=== PATIENT | female | born 1930 | race Caucasian/White ===

== ENCOUNTER 2016-05-15 19:25 | Inpatient (IN) | payer MEDICARE, BC ==
[~2016-05-15] VITALS: Ht 144.8 cm; Wt 52.2 kg
[~2016-05-15 19:25] MED LIST changes: -BIOFREEZE 0.2%-1 GE1 TOP; -CARDURA 1MG1 MG SL; -CELEBREX 1100 MG/CAP PO; -CORGARD40 MG PO; -FLONASE NASAL S16 GM NS; -FLONASEALLERGY NS; -IMODIUM 2MG CAPS2 MG PO; -K-TAB10 PO; -LASIX 40MG TABL40 MG PO; -PREDNISONE 2.52.5 MG; -PREDNISONE 2.52.5 MG PO; -RT ALBUTER2.5 MG/0.5; -RT ALBUTER2.5 MG/0.5 IH; -TESSALON P100 MG/CAP PO; -VANCOCIN HCL1 GM IV; -[UNRECOGNIZED DRUG - OTHER] PO; -[UNRECOGNIZED DRUG - OTHER] PO
[2016-05-15 20:29] LABS: PH 6 (5-8); SQUAMOUS EPITHELIAL None Seen /hpf; URINE APPEARANCE Clear; URINE BACTERIA None Seen /hpf; URINE BILIRUBIN Negative (NEGATIVE); URINE BLOOD Negative (NEGATIVE); URINE COLOR Yellow; URINE GLUCOSE Negative (NEGATIVE); URINE KETONE Negative (NEGATIVE); URINE RBC 0-2 /hpf; URINE WBC 0-2 /hpf
[2016-05-15 20:31] LABS: ADJUSTED CALCIUM 9.2 mg/dL (8.4-10.2); CALCIUM 9.2 mg/dL (8.4-10.2); CREATININE, serum 0.93 mg/dL (0.52-1.25); POTASSIUM 4.2 mmol/L (3.4-5.0); TOTAL PROTEIN 7.1 gm/dL (6.4-8.2)
[2016-05-15 20:49] LABS: C-REACTIVE PROTEIN 20.4 mg/dL (0.0-0.9)
[2016-05-15 21:50] VITALS: BP 130/59; PULSE 73; TEMP 99.5
[2016-05-16 04:29] VITALS: BP 109/45; PULSE 75; TEMP 98
[2016-05-16 07:21] LABS: MEAN CELL VOLUME 98 fl (80.0-100.0); MEAN CORPUSCULAR HGB CONC 33 g/dl (33.0-37.0); MEAN PLATELET VOLUME 10.1 fl (7.4-10.4); PLATELET COUNT 223 K/mm3 (130-400); RED BLOOD COUNT 3.15 M/mm3 (4.10-5.30); REDCELL DISTRIBUTION WIDTH-CV 13.5 % (11.5-14.5); WHITE BLOOD COUNT 18.2 K/mm3 (4.8-10.8)
[2016-05-16 07:24] LABS: ADD PATHOLOGY DIFF REVIEW NO; HEMOGLOBIN 10.2 g/dl (12.5-16.0); MEAN CORPUSCULAR HEMOGLOBIN 32 pg (27.0-31.0)
[2016-05-16 07:32] LABS: CALCIUM 8.6 mg/dL (8.4-10.2); CREATININE, serum 0.69 mg/dL (0.52-1.25)
[2016-05-16 07:43] VITALS: BP 114/53; PULSE 68; TEMP 98.5
[2016-05-16 07:48] LABS: BAND 23 % (0-10); EOSINOPHIL 1 % (0-4); NEUTROPHILS 65 % (42.0-75.2); PLATELET ESTIMATE NORMAL (NORMAL); TOTAL CELLS COUNTED 100
[2016-05-16 12:09] VITALS: BP 110/46; PULSE 65; TEMP 98.5
[2016-05-16 12:39] LABS: INFLUENZA B NEGATIVE
[2016-05-16 16:55] VITALS: BP 111/45; PULSE 73; TEMP 98.6
[2016-05-16 20:08] VITALS: BP 94/29; PULSE 73; TEMP 97.9
[2016-05-16 23:01] VITALS: BP 94/61; PULSE 70; TEMP 97.5
[2016-05-17] VITALS (10 sets, daily range): BP systolic 11–139; BP diastolic 40–90; PULSE 71–100; TEMP 98.3–98.6
[2016-05-17 06:36] LABS: ADD PATHOLOGY DIFF REVIEW NO
[2016-05-17 06:39] LABS: MEAN CELL VOLUME 100 fl (80.0-100.0); MEAN CORPUSCULAR HGB CONC 33 g/dl (33.0-37.0); MEAN PLATELET VOLUME 9.9 fl (7.4-10.4); PLATELET COUNT 260 K/mm3 (130-400); RED BLOOD COUNT 3.12 M/mm3 (4.10-5.30); REDCELL DISTRIBUTION WIDTH-CV 13.5 % (11.5-14.5); WHITE BLOOD COUNT 18.2 K/mm3 (4.8-10.8)
[2016-05-17 06:49] LABS: HEMATOCRIT 31.1 % (37.0-47.0); HEMOGLOBIN 10.1 g/dl (12.5-16.0); MEAN CORPUSCULAR HEMOGLOBIN 32 pg (27.0-31.0)
[2016-05-17 06:53] LABS: CALCIUM 8.8 mg/dL (8.4-10.2); CREATININE, serum 0.69 mg/dL (0.52-1.25); MAGNESIUM 1.8 mg/dL (1.6-2.3); POTASSIUM 4.5 mmol/L (3.4-5.0)
[2016-05-17 07:06] LABS: BAND 3 % (0-10); EOSINOPHIL 7 % (0-4); METAMYELOCYTE 1 % (0-0); NEUTROPHILS 66 % (42.0-75.2); TOTAL CELLS COUNTED 100
[2016-05-17 07:07] LABS: ANISOCYTOSIS 1+; HYPOCHROMIA 1+; POIKILOCYTOSIS 1+; POLYCHROMASIA 1+
[2016-05-18] VITALS (9 sets, daily range): BP systolic 87–129; BP diastolic 39–84; PULSE 62–110; TEMP 97.1–98.7
[2016-05-19 00:19] VITALS: BP 122/69; PULSE 66; TEMP 98
[2016-05-19 03:49] VITALS: BP 123/60; PULSE 71; TEMP 98.4
[2016-05-19 06:29] LABS: MEAN CELL VOLUME 100 fl (80.0-100.0); MEAN CORPUSCULAR HGB CONC 33 g/dl (33.0-37.0); MEAN PLATELET VOLUME 9.8 fl (7.4-10.4); PLATELET COUNT 239 K/mm3 (130-400); RED BLOOD COUNT 2.71 M/mm3 (4.10-5.30); REDCELL DISTRIBUTION WIDTH-CV 13.6 % (11.5-14.5); WHITE BLOOD COUNT 12.6 K/mm3 (4.8-10.8)
[2016-05-19 06:39] LABS: HEMOGLOBIN 8.8 g/dl (12.5-16.0); MEAN CORPUSCULAR HEMOGLOBIN 32 pg (27.0-31.0)
[2016-05-19 06:40] LABS: ADD PATHOLOGY DIFF REVIEW NO
[2016-05-19 07:14] LABS: BAND 17 % (0-10); EOSINOPHIL 9 % (0-4); MYELOCYTE 1 % (0-0); NEUTROPHILS 56 % (42.0-75.2); PLATELET ESTIMATE NORMAL (NORMAL); TOTAL CELLS COUNTED 100
[2016-05-19 08:54] VITALS: BP 151/74; PULSE 70; TEMP 98.4
[2016-05-19 12:26] VITALS: BP 134/54; PULSE 68; TEMP 98.3
[2016-05-19 15:49] VITALS: BP 127/77; PULSE 111; TEMP 98.2
[2016-05-19 20:01] VITALS: BP 132/67; PULSE 72; TEMP 98.4
[2016-05-20] VITALS (7 sets, daily range): BP systolic 102–183; BP diastolic 65–112; PULSE 68–113; TEMP 97.6–98.5
[2016-05-21 04:12] VITALS: BP 142/72; PULSE 86; TEMP 97.2
[2016-05-21 07:43] LABS: BASO % 0.3 % (0.0-2.0); EOS # 0.2 (0.0-0.7); EOS % 1.7 % (0-4.0); GRAN # 10.3 (1.4-6.5); GRAN % 74.9 % (42.2-75.2); LYMPH # 1.1 (1.2-3.4); LYMPH % 8.2 % (20.0-51.0); MEAN CELL VOLUME 100 fl (80.0-100.0); MEAN CORPUSCULAR HGB CONC 32 g/dl (33.0-37.0); MEAN PLATELET VOLUME 9.9 fl (7.4-10.4); MONO # 1.4 (0.1-0.6); MONO % 10.2 % (1.7-9.3); PLATELET COUNT 283 K/mm3 (130-400); RED BLOOD COUNT 2.76 M/mm3 (4.10-5.30); REDCELL DISTRIBUTION WIDTH-CV 13.7 % (11.5-14.5); WHITE BLOOD COUNT 13.8 K/mm3 (4.8-10.8)
[2016-05-21 07:49] LABS: HEMOGLOBIN 8.9 g/dl (12.5-16.0); MEAN CORPUSCULAR HEMOGLOBIN 32 pg (27.0-31.0)
[2016-05-21 07:50] LABS: HEMATOCRIT 27.7 % (37.0-47.0)
[2016-05-21 08:41] LABS: CALCIUM 8.8 mg/dL (8.4-10.2); CREATININE, serum 0.48 mg/dL (0.52-1.25); POTASSIUM 3.9 mmol/L (3.4-5.0)
[2016-05-21 09:14] VITALS: BP 157/65; PULSE 70; TEMP 98.7
[2016-05-21 16:12] VITALS: BP 176/72; PULSE 78; TEMP 98.2
[2016-05-21 20:26] VITALS: BP 133/64; PULSE 70; TEMP 98
[2016-05-22 00:29] VITALS: BP 118/57; PULSE 71; TEMP 98.4
[2016-05-22 03:44] VITALS: BP 141/73; PULSE 74; TEMP 98.1
[2016-05-22 07:38] LABS: CALCIUM 8.8 mg/dL (8.4-10.2); CREATININE, serum 0.57 mg/dL (0.52-1.25); MAGNESIUM 1.6 mg/dL (1.6-2.3); POTASSIUM 3.3 mmol/L (3.4-5.0)
[2016-05-22 07:41] VITALS: BP 145/87; PULSE 77; TEMP 98.3
[2016-05-22 07:50] LABS: BASO % 0.2 % (0.0-2.0); EOS # 0.5 (0.0-0.7); EOS % 4.5 % (0-4.0); GRAN # 8.1 (1.4-6.5); GRAN % 67.3 % (42.2-75.2); LYMPH # 1.4 (1.2-3.4); LYMPH % 11.8 % (20.0-51.0); MEAN CELL VOLUME 99 fl (80.0-100.0); MEAN CORPUSCULAR HGB CONC 32 g/dl (33.0-37.0); MEAN PLATELET VOLUME 9.5 fl (7.4-10.4); MONO # 1.4 (0.1-0.6); MONO % 11.6 % (1.7-9.3); PLATELET COUNT 291 K/mm3 (130-400); RED BLOOD COUNT 2.61 M/mm3 (4.10-5.30); REDCELL DISTRIBUTION WIDTH-CV 13.5 % (11.5-14.5); WHITE BLOOD COUNT 12.1 K/mm3 (4.8-10.8)
[2016-05-22 08:04] LABS: HEMATOCRIT 25.8 % (37.0-47.0); HEMOGLOBIN 8.2 g/dl (12.5-16.0); MEAN CORPUSCULAR HEMOGLOBIN 31 pg (27.0-31.0)
[2016-05-22 12:08] VITALS: BP 131/80; PULSE 110; TEMP 98.2
[2016-05-22 16:49] VITALS: BP 140/65; PULSE 85; TEMP 98.2
[2016-05-22 20:30] VITALS: BP 172/83; PULSE 71; TEMP 98.1
[2016-05-23] VITALS (7 sets, daily range): BP systolic 148–172; BP diastolic 66–79; PULSE 68–76; TEMP 97.4–98.2
[2016-05-23 13:19] LABS: CALCIUM 9.4 mg/dL (8.4-10.2); CREATININE, serum 0.65 mg/dL (0.52-1.25); MAGNESIUM 1.9 mg/dL (1.6-2.3); POTASSIUM 4.4 mmol/L (3.4-5.0)
[2016-05-24 03:40] VITALS: BP 147/79; PULSE 70; TEMP 97.6
[2016-05-24 08:04] VITALS: BP 170/74; PULSE 70; TEMP 97.9
[2016-05-24] MEDS ORDERED: LASIX 20MG TABL20 MG PO (11:43)
[2016-05-24] MEDS ORDERED: KLOR-CON 1010 MEQ PO (11:44)
[2016-05-24] MEDS ORDERED: FLONASE NASAL S16 GM NS (11:46)
[2016-05-24 12:41] VITALS: BP 131/67; PULSE 76; TEMP 97.8
[2016-09-07] MEDS ORDERED: FLONASE NASAL S16 GM NS (13:09)
[2016-09-07] MEDS ORDERED: LASIX 20MG TABL20 MG PO (13:10)
[2016-09-07] MEDS ORDERED: DILAUDID 2MG TAB2 MG PO (13:11)
[2016-09-07] MEDS ORDERED: CORGARD40 MG PO (13:12)
[2016-09-07] MEDS ORDERED: CARDURA 1MG1 MG SL (13:15)
== END 2016-05-24 14:10 | DRG 190 ==
LOC: COL.ER 19:25 → MEDICAL 21:17
PROVIDERS: Emergency Medicine; Internal Medicine; Internal Medicine Pulmonary Disease; Nurse Practitioner Family; Physician Assistant
PROC: 0B9B8ZX Drainage of Left Lower Lobe Bronchus, Via Natural or Artificial Opening Endoscopic, Diagnostic (ICD-10-PCS; 2016-05-17)
PROC: 0BC58ZZ Extirpation of Matter from Right Middle Lobe Bronchus, Via Natural or Artificial Opening Endoscopic (ICD-10-PCS; 2016-05-17)
PROC: 0B948ZX Drainage of Right Upper Lobe Bronchus, Via Natural or Artificial Opening Endoscopic, Diagnostic (ICD-10-PCS; principal; 2016-05-17 11:30)
PROC: 0B968ZX Drainage of Right Lower Lobe Bronchus, Via Natural or Artificial Opening Endoscopic, Diagnostic (ICD-10-PCS; 2016-05-18)
PROC: 0B9B8ZX Drainage of Left Lower Lobe Bronchus, Via Natural or Artificial Opening Endoscopic, Diagnostic (ICD-10-PCS; 2016-05-18)
PROC: 0B968ZX Drainage of Right Lower Lobe Bronchus, Via Natural or Artificial Opening Endoscopic, Diagnostic (ICD-10-PCS; 2016-05-21)
PROC: 0BC68ZZ Extirpation of Matter from Right Lower Lobe Bronchus, Via Natural or Artificial Opening Endoscopic (ICD-10-PCS; 2016-05-21)
PROC: 0B9B8ZX Drainage of Left Lower Lobe Bronchus, Via Natural or Artificial Opening Endoscopic, Diagnostic (ICD-10-PCS; 2016-05-21)
PROC: 0W9B3ZZ Drainage of Left Pleural Cavity, Percutaneous Approach (ICD-10-PCS; 2016-05-21)
DX: J47.0 Bronchiectasis with acute lower respiratory infection (principal); I50.33 Acute on chronic diastolic (congestive) heart failure; E87.1 Hypo-osmolality and hyponatremia; J90 Pleural effusion, not elsewhere classified; J98.11 Atelectasis; E87.3 Alkalosis; Z66 Do not resuscitate; J15.6 Pneumonia due to other Gram-negative bacteria; D86.0 Sarcoidosis of lung; I11.0 Hypertensive heart disease with heart failure; Z95.0 Presence of cardiac pacemaker; I48.91 Unspecified atrial fibrillation; Z79.01 Long term (current) use of anticoagulants; I08.3 Combined rheumatic disorders of mitral, aortic and tricuspid valves; Z87.891 Personal history of nicotine dependence; E87.6 Hypokalemia; Z87.01 Personal history of pneumonia (recurrent); J47.1 Bronchiectasis with (acute) exacerbation
CPT/HCPCS: 99222-AI; 99232-AI; 99239; C9113; G0378; J0696; J1450; J1650; J1940; J1956; J2185; J2405; J2704; J3370; J3475; J7030; J7050; J7120

== ENCOUNTER → 2016-05-15 | Outpatient (CLI) | payer MEDICARE, BC ==
[~2016-05-15] MED LIST: A & D OINT TUBE60 GM TP; ALLEGRA 180MG180 MG PO; ALLEGRA 60MG TA60 MG PO; ALLEGRA60 M1 PO; AMBIEN10 MG PO; B-121000 MCG PO; BETAMETHASONE D0.05% TP; BETAMETHASONE V; BETAPACE 120MG120 MG PO; BETAPACE 80MG80 MG PO; BETAPACE120 MG PO; BETAPACE160 MG PO; BIOFREEZE 0.2%-1 GE1 TOP; BYSTOLIC5 MG PO; CALCIUM & MAGNE1 CAP PO; CARDI-OMEGA1000 MG PO; CARDURA 1MG1 MG PO; CARDURA 1MG1 MG SL; CARDURA1 MG PO; CARDURA1 MG SL; CELEBREX 1100 MG/CAP PO; CELEBREX 200MG200 MG PO; CELEBREX100 MG PO; CELEBREX200 MG PO; CENTRUM SILVER1 CTB PO; CITRUCEL PO; CITRUCEL WITH500 MG PO; CLINORIL200 MG PO; CLOBETASOL PROP0.055 TP; CLOTRIMAZOLE TR10 MG MM; COCONUT OIL 1 ML1 ML PO; CORGARD20 MG PO; CORGARD40 MG PO; CORGARD80 MG PO; CUREL TP; DIFLUCAN200 MG PO; DIGOXIN0.25 MG PO; DILANTIN; DILANTIN KAPSEA30 MG PO; DILAUDID 2MG TAB2 MG PO; DULCOLAX TAB5 MG PO; ESTRACE0.1 MG/GM VG; ESTRACE0.5 MG PO; ESTRADIOL0.5 MG PO; ETHAMBUTOL HYD400 MG PO; EUCERIN1 CRE TP; EYE OP; FISH OIL CONC1000 MG PO; FISH OIL1000 MG PO; FLAX OIL1000 MG PO; FLAX SEED OIL1000 MG PO; FLAXSEED; FLEET GLYCERIN1 SU1 RC; FLONASE NASAL S16 GM NS; FLONASEALLERGY NS; GLYCERIN S1 SUPP.REC RC; GLYCERIN1 SUP RC; GLYCOLAX17 GM/DOSE PO; HEPARIN 50500 U/5 ML IV; HYDROGEL1 GEL; IMODIUM 2MG CAPS2 MG PO; IPRATROPIUM BROM3 M1 IH; K-DUR 10 MEQ T10 MEQ PO; K-TAB10 PO; KLOR-CON 1010 MEQ PO; LASIX 20MG TABL20 MG PO; LASIX 40MG TABL40 MG PO; LEVAQUIN 5500 MG/TA1 PO; LEVOTHROID0.025 MG PO; LEVOTHYROXIN0.025 MG PO; LEVOTHYROXINE0.05 M1 PO; LOPRESSOR 225 MG/TAB PO; LOPRESSOR 550 MG/TAB PO; LOTRIMIN15 GM TP; LOVENOX 3030 MG/0.3 SQ; LOVENOX 4040 MG/0.4 SQ; MAG-OX 400400 MG PO; MAG-OX 400400 MG/TAB PO; MERREM VIA500 MG/VIA IV; METOPROLOL25 MG PO; MILK OF MA400 MG/5 M PO; MILK OF MA400 MG/52 PO; MIRALAX 17GM PK1 PKT PO; MIRALAX PA17 GM/Dose PO; MIRALAX17 GM/DOSE PO; MUCINEX 60600 MG/TA1 PO; MULTAQ400 MG PO; MULTI VITAMINS1 TAB PO; MULTIPLE VITAMI1 TAB PO; MYCELEX10 MG/TAB MM; MYCOSTATIN100000 U/2 PO; NASONEX SPRAY17 GM NS; NASONEX0.05 MG/AC NS; NEURONTIN100 MG/CAP PO; NS INT FLUSH 1010 ML IJ; OMEGA-31000 MG PO; ORIGANUM OIL 1 M1 ML SL; PLAVIX 75MG TAB75 MG PO; PREDNISONE 2.52.5 MG; PREDNISONE 2.52.5 MG PO; PREMARIN PO; PREMARIN VAG42.5 GM VG; PREMARIN0.3 MG PO; PROAIR HFA0.09 MG/AC IH; PROBIOTIC-MAJOR PO; PROBIOTICA100 MILLIO PO; PROCTOSOL HC2.5% RC; PROVENTIL0.09 MG/A1 IH; REFRESH PLUS1 SOL OP; RIFADIN300 MG PO; RISAQUAD PO; ROBITUSSIN DM 105 ML PO; ROBITUSSIN100 MG/5 M PO; RT ALBUTER2.5 MG/0.5; RT ALBUTER2.5 MG/0.5 IH; RYTHMOL 15150 MG/TAB PO; SOTALOL HCL AF80 MG PO; SOTALOL HCL160 MG PO; SYNTHROID 0.0.025 MG PO; SYNTHROID0.05 MG PO; TEMOVATE0.05% TP; TESSALON P100 MG/CAP PO; TIKOSYN0.125 MG PO; TIROSINT25 MC1 PO; TRIAMCINOLONE A15 G3 TP; TYLENOL 325MG325 MG PO; TYLENOL 500MG500 MG PO; TYLENOL EXTRA500 M1 PO; VANCOCIN HCL1 GM IV; VITAMIN B122500 MCG PO; VITAMIN B125000 MCG PO; VITAMIN C BUFF500 MG PO; VITAMIN D31000 IU PO; VITAMIN D32000 I1 PO; VITAMIN D32000 IU PO; VITAMIN D5000 IU PO; VOLTAREN1% TP; XANAX .25M0.25 MG/TA PO; XARELTO10 MG PO; XARELTO20 MG PO; ZITHROMAX 250M250 MG PO; ZITHROMAX500 M2 PO; ZOFRAN 4MG T4 MG/TAB PO; ZOFRAN ODT8 MG PO; [UNRECOGNIZED DRUG - CODE] SQ; [UNRECOGNIZED DRUG - OTHER]; [UNRECOGNIZED DRUG - OTHER] PO; [UNRECOGNIZED DRUG - OTHER] PO
[2016-05-15 15:20] LABS: CREATININE, serum 0.77 mg/dL (0.52-1.25); POTASSIUM 4.2 mmol/L (3.4-5.0)
[2016-05-15 16:42] LABS: BASO # 0.1 (0.0-0.2); BASO % 0.3 % (0.0-2.0); EOS # 0.6 (0.0-0.7); EOS % 2.8 % (0-4.0); GRAN # 15.3 (1.4-6.5); GRAN % 75.5 % (42.2-75.2); LYMPH # 1.9 (1.2-3.4); LYMPH % 9.5 % (20.0-51.0); MEAN CELL VOLUME 96 fl (80.0-100.0); MEAN CORPUSCULAR HGB CONC 34 g/dl (33.0-37.0); MONO # 2.3 (0.1-0.6); MONO % 11.3 % (1.7-9.3); PLATELET COUNT 229 K/mm3 (130-400); RED BLOOD COUNT 3.51 M/mm3 (4.10-5.30); REDCELL DISTRIBUTION WIDTH-CV 13.6 % (11.5-14.5)
[2016-05-15 16:50] LABS: HEMATOCRIT 33.6 % (37.0-47.0); HEMOGLOBIN 11.3 g/dl (12.5-16.0); MEAN CORPUSCULAR HEMOGLOBIN 32 pg (27.0-31.0); WHITE BLOOD COUNT 20.3 K/mm3 (4.8-10.8)
== END ==
LOC: ZLAB.STJ 14:59
PROVIDERS: Internal Medicine
DX: I50.33 Acute on chronic diastolic (congestive) heart failure (principal); E87.5 Hyperkalemia; A31.0 Pulmonary mycobacterial infection

== ENCOUNTER → 2016-05-31 | Outpatient (CLI) | payer MEDICARE, BC ==
[~2016-05-31] MED LIST changes: +BIOFREEZE 0.2%-1 GE1 TOP; +CARDURA 1MG1 MG SL; +CELEBREX 1100 MG/CAP PO; +CORGARD40 MG PO; +FLONASE NASAL S16 GM NS; +FLONASEALLERGY NS; +IMODIUM 2MG CAPS2 MG PO; +K-TAB10 PO; +LASIX 40MG TABL40 MG PO; +PREDNISONE 2.52.5 MG; +PREDNISONE 2.52.5 MG PO; +RT ALBUTER2.5 MG/0.5; +RT ALBUTER2.5 MG/0.5 IH; +TESSALON P100 MG/CAP PO; +VANCOCIN HCL1 GM IV; +[UNRECOGNIZED DRUG - OTHER] PO; +[UNRECOGNIZED DRUG - OTHER] PO
[2016-05-31 17:53] VITALS: BP 148/73; PULSE 79; TEMP 97.3
[2016-05-31 18:27] LABS: CALCIUM 9.4 mg/dL (8.4-10.2); CREATININE, serum 0.71 mg/dL (0.52-1.25); MAGNESIUM 1.8 mg/dL (1.6-2.3); POTASSIUM 4.2 mmol/L (3.4-5.0)
== END ==
LOC: EUO 17:15
PROVIDERS: Family Medicine
DX: E83.42 Hypomagnesemia (principal); Z45.2 Encounter for adjustment and management of vascular access device; K90.0 Celiac disease
CPT/HCPCS: J1644

== ENCOUNTER 2016-06-22 14:45 | Outpatient (CLI) | payer MEDICARE, BC ==
[~2016-06-22] VITALS: Ht 144.8 cm; Wt 49.4 kg
[~2016-06-22 14:45] MED LIST changes: -BIOFREEZE 0.2%-1 GE1 TOP; -CARDURA 1MG1 MG SL; -CELEBREX 1100 MG/CAP PO; -CORGARD40 MG PO; -FLONASEALLERGY NS; -IMODIUM 2MG CAPS2 MG PO; -K-TAB10 PO; -LASIX 40MG TABL40 MG PO; -PREDNISONE 2.52.5 MG; -PREDNISONE 2.52.5 MG PO; -RT ALBUTER2.5 MG/0.5; -RT ALBUTER2.5 MG/0.5 IH; -TESSALON P100 MG/CAP PO; -VANCOCIN HCL1 GM IV; -[UNRECOGNIZED DRUG - OTHER] PO; -[UNRECOGNIZED DRUG - OTHER] PO
[2016-06-22 15:30] VITALS: BP 148/75; PULSE 71; TEMP 98.5
[2016-06-22 16:01] LABS: CALCIUM 9.4 mg/dL (8.4-10.2); CREATININE, serum 0.82 mg/dL (0.52-1.25); POTASSIUM 4.6 mmol/L (3.4-5.0)
[2016-09-07] MEDS ORDERED: FLONASE NASAL S16 GM NS (13:09)
[2016-09-07] MEDS ORDERED: LASIX 20MG TABL20 MG PO (13:10)
[2016-09-07] MEDS ORDERED: DILAUDID 2MG TAB2 MG PO (13:11)
[2016-09-07] MEDS ORDERED: CORGARD40 MG PO (13:12)
[2016-09-07] MEDS ORDERED: CARDURA 1MG1 MG SL (13:15)
== END 2016-06-22 15:41 | disposition home or self-care (01) ==
LOC: EUO 14:45
PROVIDERS: Family Medicine
DX: Z45.2 Encounter for adjustment and management of vascular access device (principal)
CPT/HCPCS: J1644

== ENCOUNTER 2016-07-20 15:28 | Outpatient (CLI) | payer MEDICARE, BC ==
[~2016-07-20] VITALS: Ht 144.8 cm; Wt 49.0 kg
[2016-07-20 16:20] VITALS: BP 134/65; PULSE 73; TEMP 98.1
[2016-09-07] MEDS ORDERED: FLONASE NASAL S16 GM NS (13:09)
[2016-09-07] MEDS ORDERED: LASIX 20MG TABL20 MG PO (13:10)
[2016-09-07] MEDS ORDERED: DILAUDID 2MG TAB2 MG PO (13:11)
[2016-09-07] MEDS ORDERED: CORGARD40 MG PO (13:12)
[2016-09-07] MEDS ORDERED: CARDURA 1MG1 MG SL (13:15)
== END 2016-07-20 16:26 | disposition home or self-care (01) ==
LOC: EUO 15:28
DX: Z45.2 Encounter for adjustment and management of vascular access device (principal)
CPT/HCPCS: J1644

== ENCOUNTER 2016-08-18 13:54 | Outpatient (CLI) | payer MEDICARE, BC ==
[~2016-08-18] VITALS: Ht 144.8 cm; Wt 49.2 kg
[2016-08-18 14:34] VITALS: BP 143/70; PULSE 70
[2016-09-07] MEDS ORDERED: FLONASE NASAL S16 GM NS (13:09)
[2016-09-07] MEDS ORDERED: LASIX 20MG TABL20 MG PO (13:10)
[2016-09-07] MEDS ORDERED: DILAUDID 2MG TAB2 MG PO (13:11)
[2016-09-07] MEDS ORDERED: CORGARD40 MG PO (13:12)
[2016-09-07] MEDS ORDERED: CARDURA 1MG1 MG SL (13:15)
== END 2016-08-18 16:31 | disposition home or self-care (01) ==
LOC: EUO 13:54
DX: Z45.2 Encounter for adjustment and management of vascular access device (principal)
CPT/HCPCS: J1644

== ENCOUNTER 2016-09-09 09:46 | Outpatient (CLI) | payer MEDICARE, BC ==
[~2016-09-09] VITALS: Ht 144.8 cm; Wt 49.1 kg
[~2016-09-09 09:46] MED LIST changes: +CARDURA 1MG1 MG SL; +CORGARD40 MG PO
[2016-09-09] MEDS ORDERED: [UNRECOGNIZED DRUG - OTHER] PO (10:12)
[2016-09-09] MEDS ORDERED: PROAIR HFA0.09 MG/AC IH (10:13)
[2016-09-09] MEDS ORDERED: ROBITUSSIN DM 105 ML PO (10:14)
[2016-09-09] MEDS ORDERED: XARELTO20 MG PO (10:16)
[2016-09-09 10:18] VITALS: BP 162/90; PULSE 69
[2016-09-09 11:13] LABS: CREATININE, serum 0.77 mg/dL (0.52-1.25)
[2016-09-09 12:50] VITALS: BP 140/77; PULSE 71
[2016-09-09 13:08] VITALS: BP 140/77; PULSE 71
[2016-09-09 13:25] VITALS: BP 135/74; PULSE 69
[2016-09-09 13:40] VITALS: BP 132/79; PULSE 69
[2016-09-09 14:10] VITALS: BP 153/88; PULSE 70
== END 2016-09-09 15:08 | disposition home or self-care (01) ==
LOC: COL.RAD 09:46
PROVIDERS: Family Medicine
DX: M50.33 Other cervical disc degeneration, cervicothoracic region (principal)
CPT/HCPCS: J1644; Q9967

== ENCOUNTER → 2016-09-17 | Outpatient (CLI) | payer MEDICARE, BC ==
[~2016-09-17] MED LIST changes: +BIOFREEZE 0.2%-1 GE1 TOP; +CELEBREX 1100 MG/CAP PO; +FLONASEALLERGY NS; +IMODIUM 2MG CAPS2 MG PO; +K-TAB10 PO; +LASIX 40MG TABL40 MG PO; +PREDNISONE 2.52.5 MG; +PREDNISONE 2.52.5 MG PO; +RT ALBUTER2.5 MG/0.5; +RT ALBUTER2.5 MG/0.5 IH; +TESSALON P100 MG/CAP PO; +VANCOCIN HCL1 GM IV; +[UNRECOGNIZED DRUG - OTHER] PO; +[UNRECOGNIZED DRUG - OTHER] PO
== END ==
LOC: MHCPAIN 11:20
DX: G89.29 Other chronic pain (principal); M47.812 Spondylosis without myelopathy or radiculopathy, cervical region; R51 Headache; M54.81 Occipital neuralgia; Z87.891 Personal history of nicotine dependence
CPT/HCPCS: G0463

== ENCOUNTER 2016-10-11 11:11 | Outpatient (CLI) | payer MEDICARE, BC ==
[~2016-10-11 11:11] MED LIST changes: -BIOFREEZE 0.2%-1 GE1 TOP; -CELEBREX 1100 MG/CAP PO; -FLONASEALLERGY NS; -IMODIUM 2MG CAPS2 MG PO; -K-TAB10 PO; -LASIX 40MG TABL40 MG PO; -PREDNISONE 2.52.5 MG; -PREDNISONE 2.52.5 MG PO; -RT ALBUTER2.5 MG/0.5; -RT ALBUTER2.5 MG/0.5 IH; -TESSALON P100 MG/CAP PO; -VANCOCIN HCL1 GM IV; -[UNRECOGNIZED DRUG - OTHER] PO
[2016-10-11 11:50] VITALS: BP 143/68; PULSE 73; TEMP 98.1
== END 2016-10-11 12:25 | disposition home or self-care (01) ==
LOC: EUO 11:11
DX: Z45.2 Encounter for adjustment and management of vascular access device (principal)
CPT/HCPCS: J1644

== ENCOUNTER → 2016-10-22 | Outpatient (CLI) | payer MEDICARE, BC ==
[~2016-10-22] MED LIST changes: +BIOFREEZE 0.2%-1 GE1 TOP; +CELEBREX 1100 MG/CAP PO; +FLONASEALLERGY NS; +IMODIUM 2MG CAPS2 MG PO; +K-TAB10 PO; +LASIX 40MG TABL40 MG PO; +PREDNISONE 2.52.5 MG; +PREDNISONE 2.52.5 MG PO; +RT ALBUTER2.5 MG/0.5; +RT ALBUTER2.5 MG/0.5 IH; +TESSALON P100 MG/CAP PO; +VANCOCIN HCL1 GM IV; +[UNRECOGNIZED DRUG - OTHER] PO
[2016-10-22 10:48] LABS: BASO % 0.4 % (0.0-2.0); EOS # 0.4 (0.0-0.7); EOS % 3.4 % (0-4.0); GRAN # 7.8 (1.4-6.5); GRAN % 69.8 % (42.2-75.2); HEMATOCRIT 36.1 % (37.0-47.0); LYMPH # 1.9 (1.2-3.4); LYMPH % 16.8 % (20.0-51.0); MEAN CELL VOLUME 95 fl (80.0-100.0); MEAN CORPUSCULAR HEMOGLOBIN 32 pg (27.0-31.0); MEAN CORPUSCULAR HGB CONC 33 g/dl (33.0-37.0); MEAN PLATELET VOLUME 9.5 fl (7.4-10.4); MONO % 9.1 % (1.7-9.3); PLATELET COUNT 277 K/mm3 (130-400); RED BLOOD COUNT 3.79 M/mm3 (4.10-5.30); WHITE BLOOD COUNT 11.1 K/mm3 (4.8-10.8)
[2016-10-22 11:06] LABS: ADJUSTED CALCIUM 9.2 mg/dL (8.4-10.2); ALBUMIN 4.1 gm/dL (3.5-5.0); BILIRUBIN,TOTAL 0.7 mg/dL (0.0-1.0); CALCIUM 9.3 mg/dL (8.4-10.2); CREATININE, serum 0.63 mg/dL (0.52-1.25); POTASSIUM 4.1 mmol/L (3.4-5.0); TOTAL PROTEIN 7.2 gm/dL (6.4-8.2)
== END ==
LOC: COL.RAD 09:55
PROVIDERS: Internal Medicine Gastroenterology
DX: I10 Essential (primary) hypertension (principal); R10.84 Generalized abdominal pain
CPT/HCPCS: Q9967

== ENCOUNTER 2016-11-16 17:44 | Inpatient (IN) | payer MEDICARE, BC ==
[~2016-11-16] VITALS: Ht 149.9 cm; Wt 47.4 kg
[~2016-11-16 17:44] MED LIST changes: -BIOFREEZE 0.2%-1 GE1 TOP; -CELEBREX 1100 MG/CAP PO; -FLONASEALLERGY NS; -IMODIUM 2MG CAPS2 MG PO; -K-TAB10 PO; -LASIX 40MG TABL40 MG PO; -PREDNISONE 2.52.5 MG; -PREDNISONE 2.52.5 MG PO; -RT ALBUTER2.5 MG/0.5; -RT ALBUTER2.5 MG/0.5 IH; -TESSALON P100 MG/CAP PO; -VANCOCIN HCL1 GM IV; -[UNRECOGNIZED DRUG - OTHER] PO
[2016-11-16 19:06] LABS: BASO # 0.1 (0.0-0.2); BASO % 0.3 % (0.0-2.0); EOS # 0.3 (0.0-0.7); EOS % 1.5 % (0-4.0); GRAN # 15.5 (1.4-6.5); GRAN % 83.2 % (42.2-75.2); HEMATOCRIT 37.5 % (37.0-47.0); HEMOGLOBIN 12.4 g/dl (12.5-16.0); LYMPH # 1.5 (1.2-3.4); LYMPH % 7.8 % (20.0-51.0); MEAN CELL VOLUME 95 fl (80.0-100.0); MEAN CORPUSCULAR HEMOGLOBIN 31 pg (27.0-31.0); MEAN CORPUSCULAR HGB CONC 33 g/dl (33.0-37.0); MEAN PLATELET VOLUME 9.4 fl (7.4-10.4); MONO # 1.2 (0.1-0.6); MONO % 6.7 % (1.7-9.3); PLATELET COUNT 224 K/mm3 (130-400); RED BLOOD COUNT 3.97 M/mm3 (4.10-5.30); REDCELL DISTRIBUTION WIDTH-CV 12.9 % (11.5-14.5); WHITE BLOOD COUNT 18.6 K/mm3 (4.8-10.8)
[2016-11-16 19:15] LABS: ADJUSTED CALCIUM 9.1 mg/dL (8.4-10.2); BILIRUBIN,TOTAL 0.9 mg/dL (0.0-1.0); C-REACTIVE PROTEIN 2.5 mg/dL (0.0-0.9); CALCIUM 9.1 mg/dL (8.4-10.2); CREATININE, serum 0.72 mg/dL (0.52-1.25); POTASSIUM 4.2 mmol/L (3.4-5.0)
[2016-11-16 19:29] LABS: PH 6 (5-8); SQUAMOUS EPITHELIAL None Seen /hpf; URINE APPEARANCE Clear; URINE BACTERIA None Seen /hpf; URINE BILIRUBIN Negative (NEGATIVE); URINE BLOOD Negative (NEGATIVE); URINE COLOR Yellow; URINE GLUCOSE Negative (NEGATIVE); URINE KETONE Negative (NEGATIVE); URINE UROBILINOGEN Negative (NEGATIVE); URINE WBC 0-2 /hpf
[2016-11-16] MEDS ORDERED: SYNTHROID 0.0.025 MG PO (19:48)
[2016-11-16] MEDS ORDERED: ZOFRAN 4MG T4 MG/TAB PO (19:49)
[2016-11-16] MEDS ORDERED: IMODIUM 2MG CAPS2 MG PO (19:49)
[2016-11-16] MEDS ORDERED: CELEBREX 1100 MG/CAP PO (19:54)
[2016-11-16] MEDS ORDERED: ALLEGRA 60MG TA60 MG PO (19:55)
[2016-11-16] MEDS ORDERED: FLONASEALLERGY NS (19:59)
[2016-11-16] MEDS ORDERED: [UNRECOGNIZED DRUG - OTHER] PO (20:35)
[2016-11-16] MEDS ORDERED: TYLENOL 500MG500 MG PO (20:36)
[2016-11-16] MEDS ORDERED: DULCOLAX TAB5 MG PO (20:36)
[2016-11-16] MEDS ORDERED: RT ALBUTER2.5 MG/0.5 (20:42)
[2016-11-16] MEDS ORDERED: BIOFREEZE 0.2%-1 GE1 TOP (20:43)
[2016-11-16 21:32] VITALS: BP 136/63; PULSE 70; TEMP 98.4
[2016-11-16 22:49] LABS: MAGNESIUM 1.5 mg/dL (1.6-2.3)
[2016-11-16] MEDS ORDERED: DIFLUCAN200 MG PO (23:10)
[2016-11-16] MEDS ORDERED: K-TAB10 PO (23:14)
[2016-11-16] MEDS ORDERED: LASIX 20MG TABL20 MG PO (23:16)
[2016-11-16] MEDS ORDERED: TESSALON P100 MG/CAP PO (23:17)
[2016-11-17 04:21] VITALS: BP 123/54; PULSE 73; TEMP 97.9
[2016-11-17 05:27] LABS: BASO # 0.1 (0.0-0.2); BASO % 0.3 % (0.0-2.0); EOS % 0.1 % (0-4.0); GRAN # 15.1 (1.4-6.5); GRAN % 86.9 % (42.2-75.2); LYMPH # 1.1 (1.2-3.4); LYMPH % 6.5 % (20.0-51.0); MEAN CELL VOLUME 95 fl (80.0-100.0); MEAN CORPUSCULAR HGB CONC 34 g/dl (33.0-37.0); MEAN PLATELET VOLUME 9.9 fl (7.4-10.4); MONO % 5.5 % (1.7-9.3); PLATELET COUNT 237 K/mm3 (130-400); RED BLOOD COUNT 3.63 M/mm3 (4.10-5.30); REDCELL DISTRIBUTION WIDTH-CV 13.1 % (11.5-14.5); WHITE BLOOD COUNT 17.4 K/mm3 (4.8-10.8)
[2016-11-17 05:32] LABS: HEMATOCRIT 34.6 % (37.0-47.0); HEMOGLOBIN 11.6 g/dl (12.5-16.0); MEAN CORPUSCULAR HEMOGLOBIN 32 pg (27.0-31.0)
[2016-11-17 05:39] LABS: ADJUSTED CALCIUM 8.8 mg/dL (8.4-10.2); ALBUMIN 3.5 gm/dL (3.5-5.0); BILIRUBIN,TOTAL 0.8 mg/dL (0.0-1.0); CALCIUM 8.4 mg/dL (8.4-10.2); CREATININE, serum 0.65 mg/dL (0.52-1.25); MAGNESIUM 2.1 mg/dL (1.6-2.3); POTASSIUM 4.4 mmol/L (3.4-5.0); TOTAL PROTEIN 6.2 gm/dL (6.4-8.2)
[2016-11-17 07:54] VITALS: BP 112/55; PULSE 70; TEMP 98.2
[2016-11-17 10:49] VITALS: BP 119/61; PULSE 72; TEMP 97.8
[2016-11-17 16:22] LABS: BASO # 0.1 (0.0-0.2); BASO % 0.3 % (0.0-2.0); EOS # 0.1 (0.0-0.7); EOS % 0.7 % (0-4.0); GRAN # 13.2 (1.4-6.5); GRAN % 81.4 % (42.2-75.2); LYMPH # 1.3 (1.2-3.4); LYMPH % 7.8 % (20.0-51.0); MEAN CELL VOLUME 95 fl (80.0-100.0); MEAN CORPUSCULAR HGB CONC 33 g/dl (33.0-37.0); MEAN PLATELET VOLUME 9.7 fl (7.4-10.4); MONO # 1.5 (0.1-0.6); MONO % 9.1 % (1.7-9.3); PLATELET COUNT 194 K/mm3 (130-400); RED BLOOD COUNT 3.34 M/mm3 (4.10-5.30); REDCELL DISTRIBUTION WIDTH-CV 13.2 % (11.5-14.5); WHITE BLOOD COUNT 16.3 K/mm3 (4.8-10.8)
[2016-11-17 16:30] LABS: HEMATOCRIT 31.8 % (37.0-47.0); HEMOGLOBIN 10.5 g/dl (12.5-16.0); MEAN CORPUSCULAR HEMOGLOBIN 31 pg (27.0-31.0)
[2016-11-17 17:45] VITALS: BP 108/49; PULSE 75; TEMP 98.6
[2016-11-17 20:07] VITALS: BP 116/48; PULSE 74; TEMP 98.7
[2016-11-17 23:33] VITALS: BP 99/44; PULSE 70; TEMP 97.6
[2016-11-18 03:11] VITALS: BP 102/46; PULSE 71; TEMP 98.6
[2016-11-18 06:39] LABS: BASO # 0.1 (0.0-0.2); BASO % 0.4 % (0.0-2.0); EOS # 0.3 (0.0-0.7); EOS % 1.7 % (0-4.0); GRAN % 79.5 % (42.2-75.2); LYMPH # 1.4 (1.2-3.4); LYMPH % 9.1 % (20.0-51.0); MEAN CELL VOLUME 97 fl (80.0-100.0); MEAN CORPUSCULAR HGB CONC 32 g/dl (33.0-37.0); MEAN PLATELET VOLUME 10.2 fl (7.4-10.4); MONO # 1.3 (0.1-0.6); MONO % 8.5 % (1.7-9.3); PLATELET COUNT 200 K/mm3 (130-400); RED BLOOD COUNT 3.31 M/mm3 (4.10-5.30); REDCELL DISTRIBUTION WIDTH-CV 13.2 % (11.5-14.5); WHITE BLOOD COUNT 15.1 K/mm3 (4.8-10.8)
[2016-11-18 06:47] LABS: HEMATOCRIT 32.2 % (37.0-47.0); HEMOGLOBIN 10.4 g/dl (12.5-16.0); MEAN CORPUSCULAR HEMOGLOBIN 31 pg (27.0-31.0)
[2016-11-18 06:51] LABS: CALCIUM 8.3 mg/dL (8.4-10.2); CREATININE, serum 0.61 mg/dL (0.52-1.25); MAGNESIUM 1.7 mg/dL (1.6-2.3); POTASSIUM 3.6 mmol/L (3.4-5.0)
[2016-11-18 11:09] VITALS: BP 113/50; PULSE 69; TEMP 97.7
[2016-11-18 16:15] VITALS: BP 131/59; PULSE 80
[2016-11-18 19:56] VITALS: BP 112/55; PULSE 111; TEMP 98.9
[2016-11-18 23:12] VITALS: BP 109/56; PULSE 85; TEMP 98.6
[2016-11-19 03:25] VITALS: BP 127/56; PULSE 74; TEMP 97.7
[2016-11-19 08:19] VITALS: BP 150/70; PULSE 73; TEMP 98.4
[2016-11-19] MEDS ORDERED: PREDNISONE 2.52.5 MG PO (09:31)
== END 2016-11-19 11:28 | DRG 392 ==
LOC: COL.ER 17:44 → MEDICAL 20:29
PROVIDERS: Family Medicine; Internal Medicine Gastroenterology; Nurse Practitioner Family; Physician Assistant
PROC: 0DBF8ZX Excision of Right Large Intestine, Via Natural or Artificial Opening Endoscopic, Diagnostic (ICD-10-PCS; 2016-11-18)
PROC: 0DBG8ZX Excision of Left Large Intestine, Via Natural or Artificial Opening Endoscopic, Diagnostic (ICD-10-PCS; principal; 2016-11-18 08:00)
DX: K52.89 Other specified noninfective gastroenteritis and colitis (principal); E87.1 Hypo-osmolality and hyponatremia; E44.0 Moderate protein-calorie malnutrition; I10 Essential (primary) hypertension; I48.91 Unspecified atrial fibrillation; Z95.0 Presence of cardiac pacemaker; K90.0 Celiac disease; K64.0 First degree hemorrhoids; G51.0 Bell's palsy; Z87.891 Personal history of nicotine dependence; E83.42 Hypomagnesemia; E87.8 Other disorders of electrolyte and fluid balance, not elsewhere classified; D64.9 Anemia, unspecified; D86.0 Sarcoidosis of lung; K58.0 Irritable bowel syndrome with diarrhea
CPT/HCPCS: 99222-AI; 99232-AI; 99239; J1200; J1956; J2270; J2405; J2704; J3010; J3475; J7030; J7512; Q9967

== ENCOUNTER → 2016-11-16 | Outpatient (REF) | LOC: ZLAB.STJ 11:34 | DX: Z01.89 Encounter for other specified special examinations (principal) ==

== ENCOUNTER 2016-12-03 09:56 | Inpatient (IN) | payer MEDICARE, BC ==
[~2016-12-03] VITALS: Ht 144.8 cm; Wt 46.2 kg
[~2016-12-03 09:56] MED LIST changes: +BIOFREEZE 0.2%-1 GE1 TOP; +CELEBREX 1100 MG/CAP PO; +FLONASEALLERGY NS; +IMODIUM 2MG CAPS2 MG PO; +K-TAB10 PO; +PREDNISONE 2.52.5 MG PO; +RT ALBUTER2.5 MG/0.5; +TESSALON P100 MG/CAP PO; +[UNRECOGNIZED DRUG - OTHER] PO
[2016-12-03 10:54] LABS: HEMATOCRIT 38.2 % (37.0-47.0); HEMOGLOBIN 12.3 g/dl (12.5-16.0); MEAN CELL VOLUME 97 fl (80.0-100.0); MEAN CORPUSCULAR HEMOGLOBIN 31 pg (27.0-31.0); MEAN CORPUSCULAR HGB CONC 32 g/dl (33.0-37.0); MEAN PLATELET VOLUME 9.6 fl (7.4-10.4); PLATELET COUNT 374 K/mm3 (130-400); RED BLOOD COUNT 3.95 M/mm3 (4.10-5.30); REDCELL DISTRIBUTION WIDTH-CV 13.6 % (11.5-14.5); WHITE BLOOD COUNT 18.3 K/mm3 (4.8-10.8)
[2016-12-03 10:58] LABS: ADD PATHOLOGY DIFF REVIEW NO
[2016-12-03 11:07] LABS: ADJUSTED CALCIUM 8.8 mg/dL (8.4-10.2); ALANINE AMINOTRANSFERASE 32 U/L (9-52); ALBUMIN 4.2 gm/dL (3.5-5.0); ALKALINE PHOSPHATASE 105 U/L (50-136); ANION GAP 9 mmol/L (7-16); BILIRUBIN,TOTAL 0.6 mg/dL (0.0-1.0); BLOOD UREA NITROGEN 8 mg/dL (7-17); CARBON DIOXIDE 29 mmol/L (22-30); CHLORIDE 96 mmol/L (98-107); CREATININE, serum 0.69 mg/dL (0.52-1.25); GLUCOSE 118 mg/dL (74-106); POTASSIUM 4.2 mmol/L (3.4-5.0); SODIUM 134 mmol/L (137-145); TOTAL PROTEIN 7.2 gm/dL (6.4-8.2)
[2016-12-03 11:18] LABS: B-TYPE NATRIURETIC PEPTIDE 1340 pg/mL (0-450)
[2016-12-03 11:19] LABS: TROPONIN-I < 0.012 ng/mL (0.000-0.034)
[2016-12-03 11:26] LABS: BAND 14 % (0-10); METAMYELOCYTE 1 % (0-0); MYELOCYTE 3 % (0-0); NEUTROPHILS 78 % (42.0-75.2); PLATELET ESTIMATE INCREASED (NORMAL); TOTAL CELLS COUNTED 100
[2016-12-03] MEDS ORDERED: CORGARD40 MG PO (12:09)
[2016-12-03] MEDS ORDERED: PREDNISONE 2.52.5 MG (12:12)
[2016-12-03 13:18] VITALS: BP 151/68; PULSE 92; TEMP 98.4
[2016-12-03 15:59] VITALS: BP 127/64; PULSE 77; TEMP 99.1
[2016-12-03 19:32] VITALS: BP 120/56; PULSE 79; TEMP 99.5
[2016-12-04] VITALS (7 sets, daily range): BP systolic 87–119; BP diastolic 44–71; PULSE 70–106; TEMP 97.6–99.6
[2016-12-04 17:39] LABS: CALCIUM 9.2 mg/dL (8.4-10.2); CREATININE, serum 0.87 mg/dL (0.52-1.25); POTASSIUM 3.6 mmol/L (3.4-5.0)
[2016-12-04 17:53] LABS: HEMOGLOBIN 12.1 g/dl (12.5-16.0); MEAN CELL VOLUME 95 fl (80.0-100.0); MEAN CORPUSCULAR HEMOGLOBIN 32 pg (27.0-31.0); MEAN CORPUSCULAR HGB CONC 34 g/dl (33.0-37.0); MEAN PLATELET VOLUME 9.9 fl (7.4-10.4); PLATELET COUNT 321 K/mm3 (130-400); RED BLOOD COUNT 3.79 M/mm3 (4.10-5.30); REDCELL DISTRIBUTION WIDTH-CV 13.3 % (11.5-14.5); WHITE BLOOD COUNT 17.9 K/mm3 (4.8-10.8)
[2016-12-04 18:13] LABS: HEMATOCRIT 35.9 % (37.0-47.0)
[2016-12-05 03:16] VITALS: BP 102/50; PULSE 71; TEMP 97.5
[2016-12-05 06:31] LABS: MEAN CELL VOLUME 95 fl (80.0-100.0); MEAN CORPUSCULAR HGB CONC 33 g/dl (33.0-37.0); MEAN PLATELET VOLUME 9.8 fl (7.4-10.4); PLATELET COUNT 292 K/mm3 (130-400); RED BLOOD COUNT 3.35 M/mm3 (4.10-5.30); REDCELL DISTRIBUTION WIDTH-CV 13.4 % (11.5-14.5); WHITE BLOOD COUNT 15.9 K/mm3 (4.8-10.8)
[2016-12-05 06:40] LABS: HEMATOCRIT 31.8 % (37.0-47.0); HEMOGLOBIN 10.5 g/dl (12.5-16.0); MEAN CORPUSCULAR HEMOGLOBIN 31 pg (27.0-31.0)
[2016-12-05 06:43] LABS: CALCIUM 8.6 mg/dL (8.4-10.2); CREATININE, serum 0.82 mg/dL (0.52-1.25); POTASSIUM 3.8 mmol/L (3.4-5.0)
[2016-12-05 08:18] VITALS: BP 103/53; PULSE 86; TEMP 97.9
[2016-12-05 11:11] VITALS: BP 116/70; PULSE 81; TEMP 98.2
[2016-12-05 16:14] VITALS: BP 128/66; PULSE 88; TEMP 98.5
[2016-12-05 19:42] VITALS: BP 121/61; PULSE 70; TEMP 98.7
[2016-12-05 23:09] VITALS: BP 106/53; PULSE 70; TEMP 98
[2016-12-06 02:49] VITALS: BP 106/54; PULSE 69; TEMP 97.8
[2016-12-06 07:38] LABS: CALCIUM 8.8 mg/dL (8.4-10.2); CREATININE, serum 0.77 mg/dL (0.52-1.25); POTASSIUM 3.7 mmol/L (3.4-5.0)
[2016-12-06 08:48] VITALS: BP 108/54; PULSE 72; TEMP 98.7
[2016-12-06 11:00] VITALS: BP 99/61; PULSE 75; TEMP 98.2
[2016-12-06 17:40] VITALS: BP 104/54; PULSE 70; TEMP 98.4
[2016-12-06 19:50] VITALS: BP 104/55; PULSE 72; TEMP 97.8
[2016-12-06 23:33] VITALS: BP 108/81; PULSE 70; TEMP 97.6
[2016-12-07 03:34] VITALS: BP 117/61; PULSE 82; TEMP 97.8
[2016-12-07 07:01] LABS: HEMATOCRIT 32.5 % (37.0-47.0); MEAN CELL VOLUME 94 fl (80.0-100.0); MEAN CORPUSCULAR HEMOGLOBIN 32 pg (27.0-31.0); MEAN CORPUSCULAR HGB CONC 34 g/dl (33.0-37.0); MEAN PLATELET VOLUME 9.8 fl (7.4-10.4); PLATELET COUNT 299 K/mm3 (130-400); RED BLOOD COUNT 3.47 M/mm3 (4.10-5.30); REDCELL DISTRIBUTION WIDTH-CV 13.1 % (11.5-14.5); WHITE BLOOD COUNT 14.7 K/mm3 (4.8-10.8)
[2016-12-07 07:10] LABS: CREATININE, serum 0.82 mg/dL (0.52-1.25); POTASSIUM 3.6 mmol/L (3.4-5.0)
[2016-12-07 07:42] LABS: BAND 12 % (0-10); EOSINOPHIL 6 % (0-4); METAMYELOCYTE 1 % (0-0); NEUTROPHILS 56 % (42.0-75.2); PLATELET ESTIMATE NORMAL (NORMAL); TOTAL CELLS COUNTED 100
[2016-12-07 07:50] LABS: ADD PATHOLOGY DIFF REVIEW YES
[2016-12-07 08:24] VITALS: BP 106/59; PULSE 81; TEMP 98.8
[2016-12-07 08:32] LABS: PATHOLOGY DIFF REVIEW OK
[2016-12-07 11:38] VITALS: BP 97/49; PULSE 71; TEMP 97.9
[2016-12-07] MEDS ORDERED: VANCOCIN HCL1 GM IV (14:04)
[2016-12-07] MEDS ORDERED: LASIX 40MG TABL40 MG PO (14:05)
[2016-12-07] MEDS ORDERED: RT ALBUTER2.5 MG/0.5 IH (14:05)
[2016-12-07] MEDS ORDERED: K-DUR 10 MEQ T10 MEQ PO (14:06)
[2016-12-07] MEDS ORDERED: XARELTO20 MG PO (14:08)
[2016-12-07 14:36] VITALS: BP 97/49; PULSE 71; TEMP 97.9
== END 2016-12-07 17:00 | DRG 291 ==
LOC: COL.ER 09:56 → MEDICAL 11:53
PROVIDERS: Emergency Medicine; Internal Medicine Cardiovascular Disease; Physician Assistant
DX: I11.0 Hypertensive heart disease with heart failure (principal); J18.9 Pneumonia, unspecified organism; E87.1 Hypo-osmolality and hyponatremia; E44.0 Moderate protein-calorie malnutrition; I50.33 Acute on chronic diastolic (congestive) heart failure; E03.9 Hypothyroidism, unspecified; K90.0 Celiac disease; D86.0 Sarcoidosis of lung; G62.89 Other specified polyneuropathies; D63.8 Anemia in other chronic diseases classified elsewhere; Z95.810 Presence of automatic (implantable) cardiac defibrillator; Z87.891 Personal history of nicotine dependence
CPT/HCPCS: 99223-AI; 99233-AI; 99239; J0692; J1650; J1940; J3370; J7030; J7050; J7512

== ENCOUNTER → 2016-12-10 | Outpatient (REF) ==
[~2016-12-10] MED LIST changes: +LASIX 40MG TABL40 MG PO; +PREDNISONE 2.52.5 MG; +RT ALBUTER2.5 MG/0.5 IH; +VANCOCIN HCL1 GM IV
[2016-12-10 14:44] LABS: HEMOGLOBIN 17.6 g/dl (12.5-16.0); MEAN CELL VOLUME 93 fl (80.0-100.0); MEAN CORPUSCULAR HEMOGLOBIN 31 pg (27.0-31.0); MEAN CORPUSCULAR HGB CONC 34 g/dl (33.0-37.0); MEAN PLATELET VOLUME 9.5 fl (7.4-10.4); PLATELET COUNT 154 K/mm3 (130-400); RED BLOOD COUNT 5.64 M/mm3 (4.10-5.30); REDCELL DISTRIBUTION WIDTH-CV 13.2 % (11.5-14.5); WHITE BLOOD COUNT 6.2 K/mm3 (4.8-10.8)
[2016-12-10 14:53] LABS: HEMATOCRIT 52.5 % (37.0-47.0)
[2016-12-10 14:57] LABS: INR 1.2 (0.8-3.0)
[2016-12-10 15:06] LABS: ADJUSTED CALCIUM 9.2 mg/dL (8.4-10.2); ALBUMIN 3.9 gm/dL (3.5-5.0); BILIRUBIN,TOTAL 0.4 mg/dL (0.0-1.0); CALCIUM 9.1 mg/dL (8.4-10.2); CREATININE, serum 0.83 mg/dL (0.52-1.25); POTASSIUM 3.9 mmol/L (3.4-5.0); TOTAL PROTEIN 7.4 gm/dL (6.4-8.2)
[2016-12-10 15:27] LABS: VANCOMYCIN TROUGH 20.37 ug/mL (7.00-20.00)
== END ==
LOC: ZLAB.STJ 14:39
PROVIDERS: Family Medicine
DX: Z02.89 Encounter for other administrative examinations (principal)

== ENCOUNTER → 2016-12-14 | Outpatient (REF) | LOC: ZLAB.STJ 14:25 | DX: Z02.89 Encounter for other administrative examinations (principal) ==

== ENCOUNTER → 2016-12-23 | Outpatient (REF) | LOC: ZLAB.STJ 09:32 | DX: Z02.89 Encounter for other administrative examinations (principal) ==

== ENCOUNTER 2016-12-27 10:59 | Outpatient (CLI) | payer MEDICARE, BC ==
[~2016-12-27] VITALS: Ht 144.8 cm; Wt 95.0 kg
[2016-12-27 12:13] LABS: BASO % 0.5 % (0.0-2.0); EOS # 0.6 (0.0-0.7); EOS % 6.7 % (0-4.0); GRAN # 5.4 (1.4-6.5); LYMPH # 1.4 (1.2-3.4); LYMPH % 16.5 % (20.0-51.0); MEAN CELL VOLUME 95 fl (80.0-100.0); MEAN CORPUSCULAR HGB CONC 33 g/dl (33.0-37.0); MEAN PLATELET VOLUME 9.6 fl (7.4-10.4); MONO % 11.9 % (1.7-9.3); PLATELET COUNT 267 K/mm3 (130-400); REDCELL DISTRIBUTION WIDTH-CV 13.5 % (11.5-14.5); WHITE BLOOD COUNT 8.5 K/mm3 (4.8-10.8)
[2016-12-27 12:22] LABS: HEMATOCRIT 36.1 % (37.0-47.0); HEMOGLOBIN 11.9 g/dl (12.5-16.0); MEAN CORPUSCULAR HEMOGLOBIN 31 pg (27.0-31.0)
[2016-12-27 12:24] VITALS: BP 109/56; PULSE 70; TEMP 98.5
[2016-12-27 12:42] LABS: CALCIUM 9.3 mg/dL (8.4-10.2); CREATININE, serum 0.92 mg/dL (0.52-1.25); MAGNESIUM 1.8 mg/dL (1.6-2.3); POTASSIUM 4.1 mmol/L (3.4-5.0)
[2016-12-27 13:13] LABS: THYROID STIMULATING HORMONE 1.47 uIU/mL (0.465-4.680)
[2016-12-28 05:50] LABS: PROCALCITONIN <0.05 ng/mL (0.00-0.09)
== END 2016-12-27 16:00 | disposition home or self-care (01) ==
LOC: EUO 10:59 → COL.RAD 10:59 → EUO 11:30
PROVIDERS: Family Medicine
DX: J15.211 Pneumonia due to Methicillin susceptible Staphylococcus aureus (principal); J84.10 Pulmonary fibrosis, unspecified; E53.8 Deficiency of other specified B group vitamins; E83.42 Hypomagnesemia; E03.9 Hypothyroidism, unspecified; Z45.2 Encounter for adjustment and management of vascular access device; Z95.810 Presence of automatic (implantable) cardiac defibrillator; Z95.0 Presence of cardiac pacemaker
CPT/HCPCS: J1644

== ENCOUNTER 2017-02-23 13:31 | Outpatient (CLI) | payer MEDICARE, BC ==
[~2017-02-23] VITALS: Ht 144.8 cm; Wt 45.4 kg
[2017-02-23 14:23] VITALS: BP 131/65; PULSE 69; TEMP 98.1
[2017-02-23] MEDS ORDERED: VENTOLIN0.09 MG IH (14:27)
[2017-02-23] MEDS ORDERED: LASIX 20MG TABL20 MG PO (14:31)
[2017-02-23] MEDS ORDERED: K-DUR 10 MEQ T10 MEQ PO (14:39)
[2017-02-23] MEDS ORDERED: XARELTO20 MG PO (14:40)
== END 2017-02-23 17:06 | disposition home or self-care (01) ==
LOC: EUO 13:31
DX: Z45.2 Encounter for adjustment and management of vascular access device (principal)
CPT/HCPCS: J1644

== ENCOUNTER 2017-04-07 13:41 | Outpatient (CLI) | payer MEDICARE, BC ==
[~2017-04-07] VITALS: Ht 144.8 cm; Wt 42.4 kg
[~2017-04-07 13:41] MED LIST changes: +VENTOLIN0.09 MG IH
[2017-04-07 14:00] VITALS: BP 140/72; PULSE 67; TEMP 98.2
[2017-04-07 14:14] LABS: MEAN CELL VOLUME 95 fl (80.0-100.0); MEAN CORPUSCULAR HGB CONC 33 g/dl (33.0-37.0); MEAN PLATELET VOLUME 9.4 fl (7.4-10.4); PLATELET COUNT 311 K/mm3 (130-400); RED BLOOD COUNT 3.38 M/mm3 (4.10-5.30); WHITE BLOOD COUNT 12.7 K/mm3 (4.8-10.8)
[2017-04-07 14:16] LABS: HEMATOCRIT 32.2 % (37.0-47.0); HEMOGLOBIN 10.6 g/dl (12.5-16.0); MEAN CORPUSCULAR HEMOGLOBIN 31 pg (27.0-31.0)
[2017-04-07 14:35] LABS: ADJUSTED CALCIUM 8.9 mg/dL (8.4-10.2); BILIRUBIN,TOTAL 0.3 mg/dL (0.0-1.0); CALCIUM 8.9 mg/dL (8.4-10.2); CREATININE, serum 0.86 mg/dL (0.52-1.25); MAGNESIUM 1.7 mg/dL (1.6-2.3); POTASSIUM 4.3 mmol/L (3.4-5.0); TOTAL PROTEIN 7.7 gm/dL (6.4-8.2)
== END 2017-04-07 15:02 | disposition home or self-care (01) ==
LOC: EUO 13:41
PROVIDERS: Family Medicine
DX: Z45.2 Encounter for adjustment and management of vascular access device (principal)
CPT/HCPCS: J1644

== ENCOUNTER 2017-04-28 07:40 | Outpatient (CLI) | payer MEDICARE, BC ==
[~2017-04-28] VITALS: Ht 144.8 cm; Wt 19.6 kg
[2017-04-28] VITALS (8 sets, daily range): BP systolic 127–177; BP diastolic 70–82; PULSE 69–77; TEMP 98.3
[2017-04-28 08:27] LABS: MEAN CELL VOLUME 94 fl (80.0-100.0); MEAN CORPUSCULAR HGB CONC 32 g/dl (33.0-37.0); MEAN PLATELET VOLUME 9.1 fl (7.4-10.4); PLATELET COUNT 354 K/mm3 (130-400); RED BLOOD COUNT 3.47 M/mm3 (4.10-5.30); REDCELL DISTRIBUTION WIDTH-CV 13.2 % (11.5-14.5)
[2017-04-28] MEDS ORDERED: FLORAVANCE CAP1 EACH PO (08:27)
[2017-04-28] MEDS ORDERED: BENADRYL ALLERG25 M2 PO (08:29)
[2017-04-28] MEDS ORDERED: PRILOSEC 20MG20 MG PO (08:30)
[2017-04-28 08:32] LABS: ALBUMIN 4.1 gm/dL (3.5-5.0); BILIRUBIN,TOTAL 0.5 mg/dL (0.0-1.0); CALCIUM 9.4 mg/dL (8.4-10.2); CREATININE, serum 0.75 mg/dL (0.52-1.25); HEMATOCRIT 32.5 % (37.0-47.0); HEMOGLOBIN 10.4 g/dl (12.5-16.0); MAGNESIUM 1.7 mg/dL (1.6-2.3); MEAN CORPUSCULAR HEMOGLOBIN 30 pg (27.0-31.0); TOTAL PROTEIN 7.6 gm/dL (6.4-8.2)
[2017-04-28 08:34] LABS: CALCIUM 9.4 mg/dL (8.4-10.2); CREATININE, serum 0.73 mg/dL (0.52-1.25)
[2017-04-28 08:58] LABS: INR 1.7 (0.8-3.0); PROTHROMBIN TIME 19.5 SECONDS (9.7-12.8)
[2017-04-28 09:55] LABS: MEAN CELL VOLUME 94 fl (80.0-100.0); MEAN CORPUSCULAR HGB CONC 32 g/dl (33.0-37.0); MEAN PLATELET VOLUME 9.6 fl (7.4-10.4); PLATELET COUNT 379 K/mm3 (130-400); RED BLOOD COUNT 3.43 M/mm3 (4.10-5.30); REDCELL DISTRIBUTION WIDTH-CV 13.2 % (11.5-14.5)
[2017-04-28 09:59] LABS: HEMATOCRIT 32.3 % (37.0-47.0); HEMOGLOBIN 10.3 g/dl (12.5-16.0); MEAN CORPUSCULAR HEMOGLOBIN 30 pg (27.0-31.0)
[2017-04-28 10:27] LABS: BAND 15 % (0-10); EOSINOPHIL 2 % (0-4); LYMPHOCYTE 17 % (20.0-51.0); METAMYELOCYTE 1 % (0-0); NEUTROPHILS 63 % (42.0-75.2); PLATELET ESTIMATE NORMAL (NORMAL)
== END 2017-04-28 11:30 | disposition home or self-care (01) ==
LOC: COL.RAD 07:40
PROVIDERS: Family Medicine; Internal Medicine Cardiovascular Disease
DX: I48.0 Paroxysmal atrial fibrillation (principal); I08.3 Combined rheumatic disorders of mitral, aortic and tricuspid valves; I25.5 Ischemic cardiomyopathy; I10 Essential (primary) hypertension; K90.0 Celiac disease; G51.0 Bell's palsy; I49.5 Sick sinus syndrome; A49.02 Methicillin resistant Staphylococcus aureus infection, unspecified site; F41.9 Anxiety disorder, unspecified; J30.9 Allergic rhinitis, unspecified; G43.909 Migraine, unspecified, not intractable, without status migrainosus; Z79.01 Long term (current) use of anticoagulants; Z79.02 Long term (current) use of antithrombotics/antiplatelets; Z87.01 Personal history of pneumonia (recurrent); G89.4 Chronic pain syndrome; M47.896 Other spondylosis, lumbar region; Z90.49 Acquired absence of other specified parts of digestive tract; Z88.8 Allergy status to other drugs, medicaments and biological substances; Z88.0 Allergy status to penicillin; Z88.6 Allergy status to analgesic agent; Z88.5 Allergy status to narcotic agent; Z68.20 Body mass index [BMI] 20.0-20.9, adult; K21.9 Gastro-esophageal reflux disease without esophagitis; M19.90 Unspecified osteoarthritis, unspecified site; E03.9 Hypothyroidism, unspecified; G60.9 Hereditary and idiopathic neuropathy, unspecified; D86.9 Sarcoidosis, unspecified; Z90.710 Acquired absence of both cervix and uterus; I50.9 Heart failure, unspecified; Z87.891 Personal history of nicotine dependence; Z98.1 Arthrodesis status; J44.9 Chronic obstructive pulmonary disease, unspecified; R20.2 Paresthesia of skin; Z82.3 Family history of stroke; Z95.810 Presence of automatic (implantable) cardiac defibrillator
CPT/HCPCS: G9654; J2704; J7030

== ENCOUNTER 2017-05-30 14:11 | Outpatient (CLI) | payer MEDICARE, BC ==
[~2017-05-30] VITALS: Ht 144.8 cm; Wt 44.1 kg
[~2017-05-30 14:11] MED LIST changes: +BENADRYL ALLERG25 M2 PO; +FLORAVANCE CAP1 EACH PO; +PRILOSEC 20MG20 MG PO
[2017-05-30 14:39] VITALS: BP 136/75; PULSE 75; TEMP 97.9
== END 2017-05-30 15:54 | disposition home or self-care (01) ==
LOC: EUO 14:11
DX: Z45.2 Encounter for adjustment and management of vascular access device (principal); R10.9 Unspecified abdominal pain; G89.29 Other chronic pain; E83.42 Hypomagnesemia
CPT/HCPCS: J1644

== ENCOUNTER 2017-06-27 14:12 | Outpatient (CLI) | payer MEDICARE, BC ==
[~2017-06-27] VITALS: Ht 144.8 cm; Wt 43.4 kg
[2017-06-27 14:30] VITALS: BP 133/65; PULSE 75; TEMP 97.8
[2017-06-27] MEDS ORDERED: ALLEGRA 60MG TA60 MG PO (14:39)
[2017-06-27] MEDS ORDERED: PAMELOR 10MG10 MG PO (14:41)
== END 2017-06-27 15:13 | disposition home or self-care (01) ==
LOC: EUO 14:12
DX: Z45.2 Encounter for adjustment and management of vascular access device (principal)
CPT/HCPCS: J1644

== ENCOUNTER 2017-07-26 12:54 | Outpatient (CLI) | payer MEDICARE, BC ==
[~2017-07-26] VITALS: Ht 144.8 cm; Wt 45.5 kg
[~2017-07-26 12:54] MED LIST changes: +PAMELOR 10MG10 MG PO
[2017-07-26] MEDS ORDERED: MIRAPEX 0.0.125 MG/T PO (13:25)
[2017-07-26 13:26] VITALS: BP 133/62; PULSE 73; TEMP 98.4
== END 2017-07-26 15:22 | disposition home or self-care (01) ==
LOC: EUO 12:54
DX: Z45.2 Encounter for adjustment and management of vascular access device (principal)
CPT/HCPCS: J1644

== ENCOUNTER 2017-08-23 15:08 | Outpatient (CLI) | payer MEDICARE, BC ==
[~2017-08-23] VITALS: Ht 144.8 cm; Wt 44.0 kg
[~2017-08-23 15:08] MED LIST changes: +MIRAPEX 0.0.125 MG/T PO
[2017-08-23 15:37] LABS: BASO # 0.1 (0.0-0.2); BASO % 0.7 % (0.0-2.0); EOS # 0.4 (0.0-0.7); EOS % 4.1 % (0-4.0); GRAN % 61.1 % (42.2-75.2); LYMPH # 2.3 (1.2-3.4); LYMPH % 23.3 % (20.0-51.0); MEAN CELL VOLUME 89 fl (80.0-100.0); MEAN CORPUSCULAR HGB CONC 31 g/dl (33.0-37.0); MEAN PLATELET VOLUME 9.5 fl (7.4-10.4); MONO % 10.4 % (1.7-9.3); PLATELET COUNT 332 K/mm3 (130-400); RED BLOOD COUNT 3.38 M/mm3 (4.10-5.30); REDCELL DISTRIBUTION WIDTH-CV 15.7 % (11.5-14.5)
[2017-08-23 15:40] LABS: HEMOGLOBIN 9.2 g/dl (12.5-16.0); MEAN CORPUSCULAR HEMOGLOBIN 27 pg (27.0-31.0)
[2017-08-23 15:41] VITALS: BP 128/61; PULSE 71; TEMP 98.4
[2017-08-23 15:50] LABS: ALBUMIN 3.7 gm/dL (3.5-5.0); BILIRUBIN,TOTAL 0.3 mg/dL (0.0-1.0); CALCIUM 8.7 mg/dL (8.4-10.2); CREATININE, serum 0.87 mg/dL (0.52-1.25); POTASSIUM 4.1 mmol/L (3.4-5.0); TOTAL PROTEIN 7.5 gm/dL (6.4-8.2)
[2017-08-23 16:20] LABS: THYROID STIMULATING HORMONE 1.28 uIU/mL (0.465-4.680)
== END 2017-08-23 15:43 | disposition home or self-care (01) ==
LOC: EUO 15:08
PROVIDERS: Family Medicine
DX: Z45.2 Encounter for adjustment and management of vascular access device (principal); E03.8 Other specified hypothyroidism; I10 Essential (primary) hypertension
CPT/HCPCS: J1644

== ENCOUNTER 2017-09-20 15:03 | Outpatient (CLI) | payer MEDICARE, BC ==
[~2017-09-20] VITALS: Ht 144.8 cm; Wt 45.5 kg
[2017-09-20 15:30] VITALS: BP 115/55; PULSE 52; TEMP 98
[2017-09-20 15:32] LABS: MEAN CELL VOLUME 86 fl (80.0-100.0); MEAN CORPUSCULAR HGB CONC 31 g/dl (33.0-37.0); MEAN PLATELET VOLUME 9.4 fl (7.4-10.4); PLATELET COUNT 349 K/mm3 (130-400); RED BLOOD COUNT 3.32 M/mm3 (4.10-5.30); REDCELL DISTRIBUTION WIDTH-CV 15.6 % (11.5-14.5)
[2017-09-20 15:35] LABS: HEMATOCRIT 28.7 % (37.0-47.0); MEAN CORPUSCULAR HEMOGLOBIN 27 pg (27.0-31.0)
[2017-09-20 16:12] LABS: IRON,SERUM 43 ug/dL (35-150)
[2017-09-20 16:21] LABS: TOTAL IRON BINDING CAPACITY 435 ug/dL (265-497)
[2017-09-20 16:48] LABS: FERRITIN 10 ng/mL (11-264)
== END 2017-09-20 15:40 | disposition home or self-care (01) ==
LOC: EUO 15:03
PROVIDERS: Family Medicine
DX: Z45.2 Encounter for adjustment and management of vascular access device (principal); R89.9 Unspecified abnormal finding in specimens from other organs, systems and tissues
CPT/HCPCS: J1644

== ENCOUNTER 2017-10-04 13:42 | Outpatient (CLI) | payer MEDICARE, BC ==
[~2017-10-04] VITALS: Ht 144.8 cm; Wt 45.9 kg
[2017-10-04 14:34] VITALS: BP 102/65; PULSE 84; TEMP 98.3
== END 2017-10-04 18:00 | disposition home or self-care (01) ==
LOC: EUO 13:42
DX: D50.9 Iron deficiency anemia, unspecified (principal)
CPT/HCPCS: J1644; J2916

== ENCOUNTER 2017-10-24 10:32 | Emergency (ER) | payer MEDICARE, BC ==
[~2017-10-24] VITALS: Ht 144.8 cm; Wt 44.1 kg
[2017-10-24 11:12] LABS: BASO # 0.1 (0.0-0.2); BASO % 0.4 % (0.0-2.0); EOS # 0.3 (0.0-0.7); GRAN # 9.2 (1.4-6.5); GRAN % 72.4 % (42.2-75.2); HEMOGLOBIN 10.4 g/dl (12.5-16.0); LYMPH # 2.1 (1.2-3.4); LYMPH % 16.6 % (20.0-51.0); MEAN CELL VOLUME 88 fl (80.0-100.0); MEAN CORPUSCULAR HEMOGLOBIN 27 pg (27.0-31.0); MEAN CORPUSCULAR HGB CONC 31 g/dl (33.0-37.0); MEAN PLATELET VOLUME 9.5 fl (7.4-10.4); MONO % 8.2 % (1.7-9.3); PLATELET COUNT 394 K/mm3 (130-400); RED BLOOD COUNT 3.79 M/mm3 (4.10-5.30); REDCELL DISTRIBUTION WIDTH-CV 16.8 % (11.5-14.5)
[2017-10-24 11:18] LABS: ALANINE AMINOTRANSFERASE 20 U/L (9-52); ALBUMIN 3.9 gm/dL (3.5-5.0); ALKALINE PHOSPHATASE 98 U/L (50-136); ANION GAP 11 mmol/L (7-16); AST,SGOT 23 U/L (15-37); BILIRUBIN,TOTAL 0.2 mg/dL (0.0-1.0); BLOOD UREA NITROGEN 13 mg/dL (7-17); CALCIUM 8.9 mg/dL (8.4-10.2); CARBON DIOXIDE 30 mmol/L (22-30); CHLORIDE 94 mmol/L (98-107); CREATININE, serum 0.77 mg/dL (0.52-1.25); GLUCOSE 103 mg/dL (74-106); LIPASE 225 U/L (23-300); MAGNESIUM 1.8 mg/dL (1.6-2.3); POTASSIUM 4.2 mmol/L (3.4-5.0); SODIUM 135 mmol/L (137-145); TOTAL PROTEIN 7.3 gm/dL (6.4-8.2)
[2017-10-24 11:20] LABS: HEMATOCRIT 33.3 % (37.0-47.0)
[2017-10-24 11:30] LABS: COLLECTION METHOD CATHETER
[2017-10-24 11:32] LABS: TROPONIN-I < 0.012 ng/mL (0.000-0.034)
[2017-10-24 11:42] LABS: PH 6 (5-8); SQUAMOUS EPITHELIAL None Seen /hpf; URINE APPEARANCE Clear; URINE BACTERIA None Seen /hpf; URINE BILIRUBIN Negative (NEGATIVE); URINE BLOOD Negative (NEGATIVE); URINE COLOR Colorless; URINE GLUCOSE Negative (NEGATIVE); URINE KETONE Negative (NEGATIVE); URINE LEUKOCYTE ESTERASE Negative (NEGATIVE); URINE NITRATE Negative (NEGATIVE); URINE PROTEIN(semi-quant) Negative (NEGATIVE); URINE RBC 0-2 /hpf; URINE UROBILINOGEN Negative (NEGATIVE)
[2017-10-24 11:44] LABS: INR 1.4 (0.8-3.0); PROTHROMBIN TIME 15.9 SECONDS (9.7-12.8)
[2017-10-24 11:46] LABS: PARTIAL THROMBOPLASTIN TIME 41.2 SECONDS (26.0-37.0)
[2017-10-24] MEDS ORDERED: PRILOSEC 20MG20 MG PO (12:03)
[2017-10-24 12:42] VITALS: BP 150/78; PULSE 70; TEMP 97.9
== END 2017-10-24 13:00 | disposition short-term general hospital (02) ==
LOC: COL.ER 10:32
PROVIDERS: Emergency Medicine
DX: I62.9 Nontraumatic intracranial hemorrhage, unspecified (principal); I48.91 Unspecified atrial fibrillation; Z79.01 Long term (current) use of anticoagulants; Z79.51 Long term (current) use of inhaled steroids
CPT/HCPCS: C9132

== ENCOUNTER 2017-11-29 13:29 | Outpatient (CLI) | payer MEDICARE, BC ==
[~2017-11-29] VITALS: Ht 144.8 cm; Wt 44.0 kg
[~2017-11-29 13:29] MED LIST changes: +BENADRYL25 M2 PO; +CLEOCIN HCL300 MG PO; +CORDARONE200 MG/TAB PO; +DOXYCYCLINE 10100 MG PO; +FLORAJEN A20 Billion PO; +HYLAND PO; +MAG-AL LIQUID 230 ML PO; +MASON NATURAL2000 IU; +MUCINEX FAST-M177 ML PO; +NASAREL0.025 MG/1 NAS; +NORVASC 5MG5 MG/TAB PO; +REFRESH TEARS 330 ML OP; +TUSSIN DM 10 M118 M1 PO; -[UNRECOGNIZED DRUG - OTHER] PO
[2017-11-29 14:15] VITALS: BP 119/56; PULSE 70; TEMP 98.6
[2017-11-29 14:16] LABS: MEAN CELL VOLUME 86 fl (80.0-100.0); MEAN CORPUSCULAR HGB CONC 31 g/dl (33.0-37.0); MEAN PLATELET VOLUME 9.6 fl (7.4-10.4); PLATELET COUNT 353 K/mm3 (130-400); REDCELL DISTRIBUTION WIDTH-CV 16.6 % (11.5-14.5)
[2017-11-29] MEDS ORDERED: NATURAL MAGNES200 MG PO (14:19)
[2017-11-29 14:22] LABS: HEMATOCRIT 30.9 % (37.0-47.0); HEMOGLOBIN 9.7 g/dl (12.5-16.0); MEAN CORPUSCULAR HEMOGLOBIN 27 pg (27.0-31.0)
[2017-11-29 14:31] LABS: CALCIUM 8.6 mg/dL (8.4-10.2); CREATININE, serum 0.93 mg/dL (0.52-1.25); MAGNESIUM 1.9 mg/dL (1.6-2.3); POTASSIUM 3.4 mmol/L (3.4-5.0)
== END 2017-11-29 15:03 | disposition home or self-care (01) ==
LOC: EUO 13:29
PROVIDERS: Family Medicine
DX: Z45.2 Encounter for adjustment and management of vascular access device (principal); R53.83 Other fatigue; I10 Essential (primary) hypertension; Z95.828 Presence of other vascular implants and grafts
CPT/HCPCS: J1644

== ENCOUNTER 2017-12-14 13:02 | Outpatient (CLI) | payer MEDICARE, BC ==
[~2017-12-14 13:02] MED LIST changes: +NATURAL MAGNES200 MG PO
[2017-12-14 14:06] VITALS: BP 121/60; PULSE 77; TEMP 97.8
== END 2017-12-14 15:21 | disposition home or self-care (01) ==
LOC: EUO 13:02
DX: D64.9 Anemia, unspecified (principal)
CPT/HCPCS: J1644; J2916

== ENCOUNTER 2018-01-11 13:32 | Outpatient (CLI) | payer MEDICARE, BC ==
[~2018-01-11] VITALS: Ht 144.8 cm; Wt 45.8 kg
[2018-01-11 14:05] VITALS: BP 106/52; PULSE 71; TEMP 98.6
[2018-01-11] MEDS ORDERED: CORDARONE200 MG/TAB PO (14:12)
[2018-01-11] MEDS ORDERED: NORVASC 5MG5 MG/TAB PO (14:13)
[2018-01-11] MEDS ORDERED: DILAUDID 2MG TAB2 MG PO (14:16)
[2018-01-11] MEDS ORDERED: CORGARD80 MG PO (14:20)
[2018-01-11] MEDS ORDERED: PRILOSEC 20MG20 MG PO (14:27)
[2018-01-11] MEDS ORDERED: GLYCERIN S1 SUPP.REC RC (14:28)
[2018-01-11] MEDS ORDERED: DIFLUCAN200 MG PO (14:30)
[2018-01-11] MEDS ORDERED: LASIX 20MG TABL20 MG PO (14:35)
[2018-01-11] MEDS ORDERED: LOTRIMIN1% TP (14:36)
[2018-01-11] MEDS ORDERED: VITAMIN B122500 MCG SL (14:37)
[2018-01-11] MEDS ORDERED: MYCELEX10 MG/TAB MM (14:37)
[2018-01-11] MEDS ORDERED: BENADRYL25 M2 PO (14:38)
[2018-01-11] MEDS ORDERED: DULCOLAX TAB5 MG PO (14:38)
== END 2018-01-11 14:41 | disposition home or self-care (01) ==
LOC: EUO 13:32
DX: Z45.2 Encounter for adjustment and management of vascular access device (principal)
CPT/HCPCS: J1644

== ENCOUNTER 2018-02-07 13:46 | Outpatient (CLI) | payer MEDICARE, BC ==
[~2018-02-07] VITALS: Ht 144.8 cm; Wt 45.2 kg
[~2018-02-07 13:46] MED LIST changes: +LOTRIMIN1% TP; +VITAMIN B122500 MCG SL
[2018-02-07 14:17] LABS: HEMOGLOBIN 10.3 g/dl (12.5-16.0); MEAN CELL VOLUME 89 fl (80.0-100.0); MEAN CORPUSCULAR HEMOGLOBIN 28 pg (27.0-31.0); MEAN CORPUSCULAR HGB CONC 32 g/dl (33.0-37.0); MEAN PLATELET VOLUME 9.6 fl (7.4-10.4); PLATELET COUNT 289 K/mm3 (130-400); RED BLOOD COUNT 3.65 M/mm3 (4.10-5.30); REDCELL DISTRIBUTION WIDTH-CV 20.4 % (11.5-14.5)
[2018-02-07 14:20] LABS: HEMATOCRIT 32.5 % (37.0-47.0)
[2018-02-07] MEDS ORDERED: MAGONATE M54 MG/5 ML PO (14:24)
[2018-02-07] MEDS ORDERED: SINEQUAN 1010 MG/CAP PO (14:26)
[2018-02-07 14:31] LABS: ALBUMIN 3.4 gm/dL (3.5-5.0); BILIRUBIN,TOTAL 0.2 mg/dL (0.0-1.0); CALCIUM 8.3 mg/dL (8.4-10.2); CREATININE, serum 0.94 mg/dL (0.52-1.25); POTASSIUM 3.7 mmol/L (3.4-5.0); TOTAL PROTEIN 6.4 gm/dL (6.4-8.2)
[2018-02-07 14:34] VITALS: BP 110/57; PULSE 71; TEMP 97.9
[2018-02-07 15:01] LABS: THYROID STIMULATING HORMONE 3.96 uIU/mL (0.465-4.680)
[2018-02-09 12:56] LABS: IRON,SERUM 24 ug/dL (35-150)
[2018-02-09 13:01] LABS: TOTAL IRON BINDING CAPACITY 341 ug/dL (265-497)
[2018-02-09 13:28] LABS: FERRITIN 14 ng/mL (11-264)
== END 2018-02-07 14:39 | disposition home or self-care (01) ==
LOC: EUO 13:46
PROVIDERS: Family Medicine
DX: R53.83 Other fatigue (principal); I10 Essential (primary) hypertension; D50.8 Other iron deficiency anemias; E03.9 Hypothyroidism, unspecified
CPT/HCPCS: J1644

== ENCOUNTER 2018-03-08 13:12 | Outpatient (CLI) | payer MEDICARE, BC ==
[~2018-03-08] VITALS: Ht 144.8 cm; Wt 46.0 kg
[~2018-03-08 13:12] MED LIST changes: +MAGONATE M54 MG/5 ML PO; +SINEQUAN 1010 MG/CAP PO
[2018-03-08 13:26] VITALS: BP 126/67; PULSE 77; TEMP 98.5
== END 2018-03-08 13:44 | disposition home or self-care (01) ==
LOC: EUO 13:12
DX: Z45.2 Encounter for adjustment and management of vascular access device (principal)
CPT/HCPCS: J1644

== ENCOUNTER 2018-04-07 13:29 | Outpatient (CLI) | payer MEDICARE, BC ==
[~2018-04-07] VITALS: Ht 144.8 cm; Wt 46.0 kg
[2018-04-07 13:59] VITALS: BP 104/58; PULSE 72; TEMP 98.6
== END 2018-04-07 14:44 | disposition home or self-care (01) ==
LOC: EUO 13:29
DX: Z45.2 Encounter for adjustment and management of vascular access device (principal)
CPT/HCPCS: J1644

== ENCOUNTER 2018-05-12 14:52 | Outpatient (CLI) | payer MEDICARE, BC ==
[~2018-05-12] VITALS: Ht 144.8 cm; Wt 45.0 kg
[2018-05-12 15:22] VITALS: BP 137/64; PULSE 71
[2018-05-12 15:33] LABS: ALBUMIN 3.5 gm/dL (3.5-5.0); BILIRUBIN,TOTAL 0.2 mg/dL (0.0-1.0); CALCIUM 8.7 mg/dL (8.4-10.2); CREATININE, serum 0.94 mg/dL (0.52-1.25); POTASSIUM 4.4 mmol/L (3.4-5.0)
[2018-05-12 15:43] LABS: HEMOGLOBIN 10.6 g/dl (12.5-16.0); MEAN CELL VOLUME 93 fl (80.0-100.0); MEAN CORPUSCULAR HEMOGLOBIN 29 pg (27.0-31.0); MEAN CORPUSCULAR HGB CONC 32 g/dl (33.0-37.0); MEAN PLATELET VOLUME 9.3 fl (7.4-10.4); PLATELET COUNT 457 K/mm3 (130-400); RED BLOOD COUNT 3.61 M/mm3 (4.10-5.30); REDCELL DISTRIBUTION WIDTH-CV 15.5 % (11.5-14.5)
[2018-05-12 15:45] LABS: HEMATOCRIT 33.4 % (37.0-47.0)
[2018-05-12 16:12] LABS: THYROID STIMULATING HORMONE 3.57 uIU/mL (0.465-4.680)
== END 2018-05-12 15:44 | disposition home or self-care (01) ==
LOC: EUO 14:52
PROVIDERS: Family Medicine
DX: Z45.2 Encounter for adjustment and management of vascular access device (principal); I10 Essential (primary) hypertension; E03.9 Hypothyroidism, unspecified; I48.2 Chronic atrial fibrillation; D50.8 Other iron deficiency anemias
CPT/HCPCS: J1644

== ENCOUNTER 2018-06-09 13:45 | Outpatient (CLI) | payer MEDICARE, BC ==
[~2018-06-09] VITALS: Ht 144.8 cm; Wt 44.0 kg
[2018-06-09 14:28] VITALS: BP 87/54; PULSE 70; TEMP 97.9
[2018-06-09 15:21] VITALS: BP 124/74; PULSE 73
== END 2018-06-09 16:05 | disposition home or self-care (01) ==
LOC: EUO 13:45
DX: Z45.2 Encounter for adjustment and management of vascular access device (principal)
CPT/HCPCS: J1644

== ENCOUNTER 2018-07-07 14:09 | Outpatient (CLI) | payer MEDICARE, BC ==
[~2018-07-07] VITALS: Ht 144.8 cm; Wt 44.6 kg
[2018-07-07 15:24] VITALS: BP 104/53; PULSE 71; TEMP 97.7
[2018-07-07 15:29] LABS: BASO % 0.2 % (0.0-2.0); EOS # 0.7 (0.0-0.7); EOS % 4.1 % (0-4.0); GRAN # 14.2 (1.4-6.5); HEMATOCRIT 33.1 % (37.0-47.0); HEMOGLOBIN 10.6 g/dl (12.5-16.0); LYMPH # 0.9 (1.2-3.4); LYMPH % 5.4 % (20.0-51.0); MEAN CELL VOLUME 90 fl (80.0-100.0); MEAN CORPUSCULAR HEMOGLOBIN 29 pg (27.0-31.0); MEAN CORPUSCULAR HGB CONC 32 g/dl (33.0-37.0); MEAN PLATELET VOLUME 9.3 fl (7.4-10.4); MONO # 1.4 (0.1-0.6); MONO % 7.9 % (1.7-9.3); PLATELET COUNT 461 K/mm3 (130-400); RED BLOOD COUNT 3.67 M/mm3 (4.10-5.30); REDCELL DISTRIBUTION WIDTH-CV 18.4 % (11.5-14.5)
[2018-07-07 15:38] LABS: ALBUMIN 3.1 gm/dL (3.5-5.0); BILIRUBIN,TOTAL 0.2 mg/dL (0.0-1.0); CALCIUM 8.3 mg/dL (8.4-10.2); CREATININE, serum 0.83 mg/dL (0.52-1.25); POTASSIUM 5.1 mmol/L (3.4-5.0); TOTAL PROTEIN 6.4 gm/dL (6.4-8.2)
[2018-07-07] MEDS ORDERED: NP THYROID30 MG PO (21:17)
[2018-07-07] MEDS ORDERED: ALBUTEROL SULFAT3 M3 IH (21:19)
[2018-07-07] MEDS ORDERED: ZOFRAN 4MG T4 MG/TAB PO (21:19)
[2018-07-07] MEDS ORDERED: CORGARD40 MG PO (21:20)
[2018-07-07] MEDS ORDERED: TYLENOL 500MG500 MG PO (21:20)
[2018-07-07] MEDS ORDERED: CORDARONE200 MG/TAB PO (21:20)
[2018-07-07] MEDS ORDERED: MASON NATURAL2000 IU (21:21)
[2018-07-07] MEDS ORDERED: LASIX 20MG TABL20 MG PO (21:21)
[2018-07-07] MEDS ORDERED: MIRALAX PA17 GM/Dose PO (21:22)
[2018-07-07] MEDS ORDERED: [UNRECOGNIZED DRUG - OTHER] PO (21:22)
[2018-07-07] MEDS ORDERED: ORIGANUM OIL 1 M1 ML (21:22)
[2018-07-07] MEDS ORDERED: FLORAJEN A20 Billion PO (21:23)
[2018-07-07] MEDS ORDERED: NORVASC 5MG5 MG/TAB PO (21:23)
[2018-07-07] MEDS ORDERED: DILAUDID 2MG TAB2 MG PO (21:24)
[2018-07-08] MEDS ORDERED: K-DUR 10 MEQ T10 MEQ PO (01:18)
[2018-07-08] MEDS ORDERED: FLORAJEN A20 Billion PO (01:19)
[2018-07-08] MEDS ORDERED: PRILOSEC 20MG20 MG PO (01:20)
[2018-07-08] MEDS ORDERED: BACTRIM PED152.22 ML PO (01:21)
[2018-07-08] MEDS ORDERED: SINEQUAN 1010 MG/CAP PO (01:23)
[2018-07-08] MEDS ORDERED: FLONASE NASAL S16 GM NS (01:24)
[2018-07-08] MEDS ORDERED: [UNRECOGNIZED DRUG - OTHER] (01:25)
[2018-07-08] MEDS ORDERED: CARDURA 1MG1 MG SL (01:27)
[2018-07-08] MEDS ORDERED: ALLEGRA 60MG TA60 MG PO (01:28)
[2018-07-08] MEDS ORDERED: BIOTENE ORALBAL42 GM MM (01:58)
[2018-07-08] MEDS ORDERED: REFRESH 1 ML1 ML OP (01:59)
[2018-07-08] MEDS ORDERED: SARNA ANTI-ITC222 ML TP (02:00)
[2018-07-08] MEDS ORDERED: TIROSINT50 MC1 PO (06:40)
== END 2018-07-07 15:26 | disposition home or self-care (01) ==
LOC: EUO 14:09
PROVIDERS: Nurse Practitioner
DX: Z45.2 Encounter for adjustment and management of vascular access device (principal); J44.9 Chronic obstructive pulmonary disease, unspecified; J98.4 Other disorders of lung
CPT/HCPCS: J1644

== ENCOUNTER → 2019-03-22 | Outpatient (CLI) | payer MEDICARE, BC ==
[~2019-03-22] MED LIST changes: +ALBUTEROL SULFAT3 M3 IH; +BACTRIM PED152.22 ML PO; +BIOTENE ORALBAL42 GM MM; +NP THYROID30 MG PO; +ORIGANUM OIL 1 M1 ML; +REFRESH 1 ML1 ML OP; +SARNA ANTI-ITC222 ML TP; +TIROSINT50 MC1 PO; +[UNRECOGNIZED DRUG - OTHER]
== END ==
LOC: ZLAB.STJ 15:53
DX: R79.89 Other specified abnormal findings of blood chemistry (principal); R68.89 Other general symptoms and signs

== ENCOUNTER 2019-03-29 13:40 | Inpatient (IN) | payer MEDICARE, BC ==
[~2019-03-29] VITALS: Ht 144.8 cm; Wt 42.3 kg
[2019-03-29 14:19] LABS: BASO # 0.1 (0.0-0.2); BASO % 0.4 % (0.0-2.0); EOS # 0.3 (0.0-0.7); EOS % 2.2 % (0-4.0); GRAN # 10.9 (1.4-6.5); GRAN % 81.3 % (42.2-75.2); LYMPH # 0.9 (1.2-3.4); LYMPH % 6.7 % (20.0-51.0); MEAN CELL VOLUME 92 fl (80.0-100.0); MEAN CORPUSCULAR HGB CONC 32 g/dl (33.0-37.0); MEAN PLATELET VOLUME 9.6 fl (7.4-10.4); MONO # 1.2 (0.1-0.6); MONO % 8.8 % (1.7-9.3); PLATELET COUNT 296 K/mm3 (130-400); RED BLOOD COUNT 3.23 M/mm3 (4.10-5.30); REDCELL DISTRIBUTION WIDTH-CV 18.3 % (11.5-14.5)
[2019-03-29 14:22] LABS: HEMATOCRIT 29.8 % (37.0-47.0); HEMOGLOBIN 9.5 g/dl (12.5-16.0); MEAN CORPUSCULAR HEMOGLOBIN 29 pg (27.0-31.0)
[2019-03-29 14:25] LABS: PROTHROMBIN TIME 11.2 SECONDS (9.7-12.8)
[2019-03-29 14:33] LABS: ALBUMIN 2.7 gm/dL (3.5-5.0); C-REACTIVE PROTEIN 3.1 mg/dL (0.0-0.9); CALCIUM 7.9 mg/dL (8.4-10.2); CREATININE, serum 0.83 (0.52-1.25); POTASSIUM 3.8 mmol/L (3.4-5.0); TOTAL PROTEIN 5.7 gm/dL (6.4-8.2)
[2019-03-29 14:35] LABS: COLLECTION METHOD CATHETER
[2019-03-29 14:41] LABS: TROPONIN-I 0.031 ng/mL (0.000-0.035)
[2019-03-29 14:41] LABS: MUCOUS Present /lpf; PH 6 (5-8); SQUAMOUS EPITHELIAL None Seen /hpf; URINE APPEARANCE Clear; URINE BACTERIA Rare /hpf; URINE BILIRUBIN Negative (NEGATIVE); URINE BLOOD Negative (NEGATIVE); URINE COLOR Amber; URINE GLUCOSE Negative (NEGATIVE); URINE KETONE Negative (NEGATIVE); URINE LEUKOCYTE ESTERASE Negative (NEGATIVE); URINE NITRATE Negative (NEGATIVE); URINE PROTEIN(semi-quant) Negative (NEGATIVE); URINE RBC 0-2 /hpf; URINE UROBILINOGEN >=4.0 mg/dL (NEGATIVE)
[2019-03-29] MEDS ORDERED: FLONASEALLERGY NS (15:01)
[2019-03-29] MEDS ORDERED: MIRALAX PA17 GM/Dose PO (15:01)
[2019-03-29] MEDS ORDERED: AKWA TEARS 15 M15 ML OP (15:02)
[2019-03-29] MEDS ORDERED: BIOTENE MOIST44.3 ML PO (15:03)
[2019-03-29] MEDS ORDERED: DILAUDID 2MG TAB2 MG PO ×2 (15:04→15:06)
[2019-03-29] MEDS ORDERED: ZOFRAN 4MG T4 MG/TAB PO (15:04)
[2019-03-29] MEDS ORDERED: GAS RELIEF 8080 MG PO (15:05)
[2019-03-29] MEDS ORDERED: TIROSINT50 MC1 PO (15:06)
[2019-03-29] MEDS ORDERED: ATIVAN 0.50.5 MG/TAB PO (15:08)
[2019-03-29] MEDS ORDERED: PRILOSEC 20MG20 MG PO (15:08)
[2019-03-29] MEDS ORDERED: DAPSONE 25MG TA25 MG PO (15:09)
[2019-03-29] MEDS ORDERED: VITAMIN A10k (15:10)
[2019-03-29] MEDS ORDERED: ATARAX50 MG PO (15:10)
[2019-03-29] MEDS ORDERED: B-12 500 MCG PO (15:11)
[2019-03-29] MEDS ORDERED: MYCELEX10 MG/TAB (15:12)
[2019-03-29] MEDS ORDERED: SARNA ANTI-ITC222 ML TP (15:12)
[2019-03-29 17:42] VITALS: BP 121/57; PULSE 69; TEMP 98
[2019-03-29] MEDS ORDERED: DENTIVA1 LOZ PO (18:20)
--- NOTE | 2019-03-29 18:27 | NUR ---
Pt arrived to unit from ER. Patient is here with DPO Jesus. Patient is alert and mostly oriented. Does not know time or year. Patient VSS. Has PORT to left side of chest, accessible. CD&I. NS running at 75ml/hr. Patient does have rash all over body, which is normal per DPOA. Has hx of pruritis. Will continue to be treated with zithromax and rocephin. Denies pain or needs at this time. CAll light within reach, will continue to monitor
[2019-03-29 19:13] VITALS: BP 137/60; PULSE 77; TEMP 97.7
[2019-03-29 23:32] VITALS: BP 88/42; PULSE 73; TEMP 97.5
[2019-03-30 03:36] VITALS: BP 118/58; PULSE 77
[2019-03-30 04:11] VITALS: BP 109/50; PULSE 67; TEMP 98.6
[2019-03-30 06:02] LABS: BASO # 0.1 (0.0-0.2); BASO % 0.4 % (0.0-2.0); EOS # 0.3 (0.0-0.7); EOS % 2.6 % (0-4.0); GRAN % 78.7 % (42.2-75.2); LYMPH % 8.1 % (20.0-51.0); MEAN CELL VOLUME 95 fl (80.0-100.0); MEAN CORPUSCULAR HGB CONC 30 g/dl (33.0-37.0); MEAN PLATELET VOLUME 9.9 fl (7.4-10.4); MONO # 1.2 (0.1-0.6); MONO % 9.5 % (1.7-9.3); PLATELET COUNT 255 K/mm3 (130-400); RED BLOOD COUNT 2.53 M/mm3 (4.10-5.30); REDCELL DISTRIBUTION WIDTH-CV 18.4 % (11.5-14.5)
[2019-03-30 06:09] LABS: MEAN CORPUSCULAR HEMOGLOBIN 29 pg (27.0-31.0)
[2019-03-30 06:10] LABS: HEMOGLOBIN 7.4 g/dl (12.5-16.0)
[2019-03-30 06:12] LABS: CALCIUM 7.2 mg/dL (8.4-10.2); CREATININE, serum 0.7 (0.52-1.25); POTASSIUM 3.7 mmol/L (3.4-5.0)
[2019-03-30 08:26] VITALS: BP 135/55; PULSE 73; TEMP 98.4
--- NOTE | 2019-03-30 09:55 | NUR ---
Pt assessment completed and charted. Pt sitting in bed eating breakfast. Pt A&O, denies dizziness, chest pain, N/V/D. Pt c/o pain in feet and toes, rating it 4/10 at this time. Pt receives scheduled dilaudid. Pt asking about "something for nerves", will discuss w/ hospitalist. LS clear, HR irregular, murmur noted. Radial pulses strong bilaterally. BS X4. Pt denies SOB at this time, on 2L NC. No other concerns expressed at this time. NS at 75 ml/hr running to Lt chest adriana cath w/o complications.
[2019-03-30 11:20] VITALS: BP 133/72; PULSE 78; TEMP 98.6
--- NOTE | 2019-03-30 14:24 | NUR ---
PORSHA attempted to contact the patient's brother, Madhu (ph#[phone]) to discuss discharge plan. PORSHA left him a voicemail. PORSHA then contacted the patient's alternative DPOA-HC, Deepa Gil (ph#[phone]). The patient resides at [facility]. Deepa reports that the plan is for the patient to return back to [facility] upon discharge. PORSHA explained the Patient Choice Form to Deepa and Deepa gave PORSHA her verbal consent. The patient's PCP is Dr. Scott Shipley and her DPOA-HC is in EMR. Her DPOA-HC is her brother (Madhu Rose) and the alternate is Deepa Gil. PORSHA contacted and faxed updates to Gaudencio at [facility]. PORSHA to continue to follow.
[2019-03-30 19:58] VITALS: BP 85/55; PULSE 71; TEMP 98.4
--- NOTE | 2019-03-30 19:59 | NUR ---
Pt had uneventful day. Assisted to bedside commode. IVF running to left chest port w/o complications. Pt received aitvan PRN at 1530 for "nerves". No other concerns expressed. Report given to KEYUR Magaña.
[2019-03-30 23:55] VITALS: BP 122/53; PULSE 73; TEMP 98.2
[2019-03-31 04:26] VITALS: BP 148/70; PULSE 74; TEMP 97.3
[2019-03-31 07:09] VITALS: BP 141/55; PULSE 72; TEMP 98.2
--- NOTE | 2019-03-31 07:42 | NUR ---
REPORT RECEIVED FROM KEYUR CORTEZ. PT AWAKEN BY STAFF TO CHECK HER VS. PT RESTING IN BED COMFORTABLLY. CALL LIGHT IN REACH.
[2019-03-31 08:22] LABS: CALCIUM 7.5 mg/dL (8.4-10.2); CREATININE, serum 0.56 (0.52-1.25); POTASSIUM 3.4 mmol/L (3.4-5.0)
[2019-03-31 08:45] LABS: BASO # 0.1 (0.0-0.2); BASO % 0.4 % (0.0-2.0); EOS # 0.9 (0.0-0.7); EOS % 7.5 % (0-4.0); GRAN # 9.1 (1.4-6.5); GRAN % 72.4 % (42.2-75.2); LYMPH # 1.1 (1.2-3.4); LYMPH % 8.8 % (20.0-51.0); MEAN CELL VOLUME 98 fl (80.0-100.0); MEAN CORPUSCULAR HGB CONC 30 g/dl (33.0-37.0); MEAN PLATELET VOLUME 10.6 fl (7.4-10.4); MONO # 1.3 (0.1-0.6); MONO % 10.2 % (1.7-9.3); PLATELET COUNT 291 K/mm3 (130-400); RED BLOOD COUNT 2.68 M/mm3 (4.10-5.30); REDCELL DISTRIBUTION WIDTH-CV 18.4 % (11.5-14.5)
[2019-03-31 08:49] LABS: HEMATOCRIT 26.2 % (37.0-47.0); HEMOGLOBIN 7.9 g/dl (12.5-16.0); MEAN CORPUSCULAR HEMOGLOBIN 29 pg (27.0-31.0)
--- NOTE | 2019-03-31 08:59 | NUR ---
Pt having breakfast in bed alert and oriented. Call light in reach.
[2019-03-31 11:16] VITALS: BP 139/53; PULSE 69; TEMP 98.5
--- NOTE | 2019-03-31 11:17 | NUR ---
Visit attempted and pt sleeping soundly in bed. Call light in reach.
[2019-03-31] MEDS ORDERED: OMNICEF 300MG300 MG PO (11:34)
[2019-03-31] MEDS ORDERED: ATIVAN 0.50.5 MG/TAB PO (11:35)
[2019-03-31] MEDS ORDERED: DILAUDID 2MG TAB2 MG PO (11:35)
--- NOTE | 2019-03-31 12:07 | NUR ---
PT AMBULATED TO BATHROOM TO HAVE BM AND BACK TO BED WITH ONE ASSIST AND WALKER. CALL LIGHT IN REACH.
[2019-03-31 12:32] VITALS: BP 139/53; PULSE 69; TEMP 98.5
--- NOTE | 2019-03-31 13:43 | NUR ---
Pt awake alert and oriented. Pt noted her transfer back to this afternoon. Pt's Jesus PORTER notified her transfer order and report given to Luciana, nurse at who's going to receive pt this afternoon. Pt resting in bed comfortably. Call light in reach.
--- NOTE | 2019-03-31 14:34 | NUR ---
RA SPO2 75% PLACED ON 4 LPM NC 90%
--- NOTE | 2019-03-31 15:59 | NUR ---
PORSHA received word that Patient would be discharing today. Coordinated with patients nurse for release. Contacted Amanda and informed her about the discharge, and spoke with Gaudencio who arranged for bulk picker to be at 2:00. PORSHA faxed over discharge documents to Gaudencio.
== END 2019-03-31 14:30 | DRG 690 ==
LOC: COL.ER 13:40 → MEDICAL 15:25
PROVIDERS: Emergency Medicine; Nurse Practitioner Family; ADMIT Student in an Organized Health Care Education/Training Program
DX: N39.0 Urinary tract infection, site not specified (principal); J96.11 Chronic respiratory failure with hypoxia; Z95.810 Presence of automatic (implantable) cardiac defibrillator; I48.91 Unspecified atrial fibrillation; I10 Essential (primary) hypertension; E03.9 Hypothyroidism, unspecified; D86.9 Sarcoidosis, unspecified; Z99.81 Dependence on supplemental oxygen; G43.909 Migraine, unspecified, not intractable, without status migrainosus; K21.9 Gastro-esophageal reflux disease without esophagitis; D50.9 Iron deficiency anemia, unspecified; G51.0 Bell's palsy; G62.89 Other specified polyneuropathies; Z90.49 Acquired absence of other specified parts of digestive tract; Z90.710 Acquired absence of both cervix and uterus; Z86.73 Personal history of transient ischemic attack (TIA), and cerebral infarction without residual deficits; Z87.01 Personal history of pneumonia (recurrent); Z79.51 Long term (current) use of inhaled steroids; Z79.891 Long term (current) use of opiate analgesic; Z87.891 Personal history of nicotine dependence; Z88.0 Allergy status to penicillin; Z88.6 Allergy status to analgesic agent; Z88.5 Allergy status to narcotic agent; Z88.8 Allergy status to other drugs, medicaments and biological substances
CPT/HCPCS: 99223-AI; 99233-AI; 99239; A4216; J0456; J0696; J7030; J7050

== ENCOUNTER 2019-04-02 12:00 | Emergency (ER) | payer MEDICARE, BC ==
[~2019-04-02] VITALS: Ht 144.8 cm; Wt 42.3 kg
[~2019-04-02 12:00] MED LIST changes: +AKWA TEARS 15 M15 ML OP; +ATARAX50 MG PO; +ATIVAN 0.50.5 MG/TAB PO; +B-12 500 MCG PO; +BIOTENE MOIST44.3 ML PO; +DAPSONE 25MG TA25 MG PO; +DENTIVA1 LOZ PO; +GAS RELIEF 8080 MG PO; +MYCELEX10 MG/TAB; +OMNICEF 300MG300 MG PO; +VITAMIN A10k
[2019-04-02 12:30] VITALS: TEMP 97.2
[2019-04-02 14:45] VITALS: BP 170/101; PULSE 87
--- NOTE | 2019-04-02 15:00 | NUR ---
Flat Grinder Operator responded to the ER after receiving social service consult. Patient lives at [facility] and was taken to the ER via [facility] transportation. PORSHA met with patient's DPOA, Deepa (ph#[phone]) who states she does not feel transporting patient via wheelchair was good judgement and wants patient to be transported back to [facility] via EMS transport. Deepa states she also wants patient to return to [facility] with hospice. Deepa chose [facility] as first preference and [facility] as second preference if [facility] could not accept. PORSHA contacted Natasha at [facility] and faxed over referral information. PORSHA contacted Kaylie at [facility] and set up transportation. Kaylie advised that there is a possibility Medicare will not cover cost of EMS transportation and out of pocket would be approximately $730. PORSHA provided this update to Deepa who states she still wants to move forward with EMS transportation. [facility] to order picker patient in next 20 minutes and take patient back to [facility]. PORSHA contacted Judi at [facility] and faxed discharge order from ER. PORSHA contacted Gaudencio at [facility] to inform him that patient to return to [facility] promptly and that [facility]'s wheelchair and oxygen tank will need to be picked up. No additional concerns at this time.
== END 2019-04-02 14:45 | disposition home or self-care (01) ==
LOC: COL.ER 12:00
DX: J96.10 Chronic respiratory failure, unspecified whether with hypoxia or hypercapnia (principal); K21.9 Gastro-esophageal reflux disease without esophagitis; I48.91 Unspecified atrial fibrillation; Z95.810 Presence of automatic (implantable) cardiac defibrillator; Z79.51 Long term (current) use of inhaled steroids
CPT/HCPCS: J1644